=== PATIENT | male | born 1960 | race Caucasian/White ===

== ENCOUNTER 2023-05-06 11:35 | Outpatient (AMB) | payer OTHER, SELFPAY ==
--- OUTSIDE RECORDS SUMMARY | 2023-05-06 11:36 | XMS_ITS | Continuity of Care Document ---
Author Name Unknown Organization [facility] [place] Panchito lt Address [address] [place] [address]- Care Team Providers Care Child Daycare Worker Name Role Phone Christiano Chaudhary MD Primary Care Physician Encounter [facility] Date(s): 01/14/23 - 02/13/23 [facility] [place] Adult [address] [place] [address]- Allergies, Adverse Reactions, Alerts No Known Allergies Immunizations Given and Recorded Vaccine Date Status Refusal Reason influenza virus vaccine, inactivated 01/11/23 Give n influenza virus vaccine, inactivated 12/19/21 Give n influenza virus vaccine, inactivated 01/08/19 Give n influenza virus vaccine, inactivated 01/01/18 Give n influenza virus vaccine, inactivated 03/23/16 Give n influenza virus vaccine, inactivated 01/18/15 Give n influenza virus vaccine, inactivated 11/19/13 Jeanmarie rded influenza virus vaccine, inactivated 01/19/13 Give n influenza virus vaccine, inactivated 03/14/12 Give n pneumococcal 20-valent conjugate vaccine 1 06/25/22 Given SARS-CoV-2 (COVID-19) mRNA BNT-162b2 vac 03/23/21 Recorded SARS-CoV-2 (COVID-19) mRNA BNT-162b2 vac 07/19/20 Recorded SARS-CoV-2 (COVID-19) mRNA BNT-162b2 vac 06/28/20 Recorded Influenza Virus Vaccine (oldterm) 01/06/20 Recorde d tetanus/diphtheria/pertussis, acel(Tdap) 2 10/23/19 Given Tet/Diphth/Acel, Pertussis (oldterm) 04/04/10 Give n Pneumococcal Vacc (oldterm) 04/04/10 Given Tetanus Toxoid Vaccine (oldterm) 05/16/00 Given 1Result Comment: [id number] 2Result Comment: [facility]-[id number] Medications aspirin 81 mg oral delayed release tablet 81 mg, 1, tablet, By Mouth, Daily, # 90 tablet, Refills 0, Maintenance, 05/25/20 13:33:00 EST, Partial fill upon patient request if the prescription is for a schedule II opioid drug. Start Date: 05/25/20 Status: Ordered atorvastatin 40 mg oral tablet 1 tablet, By Mouth, Daily, # 90 tablet, 3 Refills, 02/06/23 9:35:00 EST, [facility]/pharmacy #[id number], 157.5,cm, 01/22/23 12:41:00 EST, Height Start Date: 02/06/23 Status: Ordered Vitamin B-12 1000 mcg oral tablet 1, tablet, By Mouth, Daily, # 90 tablet, Refills 3, Tot. 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 2colo 2014 3Colonoscopy 2018 positive polyp, repeat 2022 4Colonoscopy 2015 positive diverticulosis, non-adenomatous polyp, repeat 2019. 5colo 2013 polyp, repeat 2018 6colo 2008 polyp, rpt 3-5 years 7colo 2008 polyp, rpt 2010 Social History Social History Type Response Smoking Status Current every day sm oker; Other: 1 pack of cigarettes daily.; entered on: 11/08/16 Sex Patient Care team information Care Team Personnel Name: Christiano Chaudhary MD Position: S Physician - Primary Care Member Role: PCP Address: Address: [address] [place] [id number]- [place] Care Team Related Persons Name: BOZENA CARDENAS Address: home [address] [place] [address] Name: KENTON CARDENAS Address: home [address] [place] [address] Name: VANNA CARDENAS Address: home [address] [place] [address] Name: GRETCHEN RIVERO Address: home [address] [place] [address]
--- OUTSIDE RECORDS SUMMARY | 2023-05-06 11:36 | XMS_ITS | Continuity of Care Document ---
Author Name Unknown Organization [facility] Address [address] [place] [address] Dri ve [address] [place] [address]- Care Team Providers Care Patient Monitor Name Role Phone Neena MENSAH, Christiano Melvin Primary Care Physician Encounter [facility] [place] Date(s): 02/06/22 - 02/13/22 [facility] [address] [place] [address]- Attending Physician: Nickolas Lala MD Referring Physician: Christiano Chaudhary MD Allergies, Adverse Reactions, Alerts No Known Allergies Immunizations Given and Recorded Vaccine Date Status Refusal Reason influenza virus vaccine, inactivated 12/19/21 Give n influenza virus vaccine, inactivated 01/08/19 Give n influenza virus vaccine, inactivated 01/01/18 Give n influenza virus vaccine, inactivated 03/23/16 Give n influenza virus vaccine, inactivated 01/18/15 Give n influenza virus vaccine, inactivated 11/19/13 Jeanmarie rded influenza virus vaccine, inactivated 01/19/13 Give n influenza virus vaccine, inactivated 03/14/12 Give n SARS-CoV-2 (COVID-19) mRNA BNT-162b2 vac 03/23/21 Recorded SARS-CoV-2 (COVID-19) mRNA BNT-162b2 vac 07/19/20 Recorded SARS-CoV-2 (COVID-19) mRNA BNT-162b2 vac 06/28/20 Recorded Influenza Virus Vaccine (oldterm) 01/06/20 Recorde d tetanus/diphtheria/pertussis, acel(Tdap) 1 10/23/19 Given Tet/Diphth/Acel, Pertussis (oldterm) 04/04/10 Give n Pneumococcal Vacc (oldterm) 04/04/10 Given Tetanus Toxoid Vaccine (oldterm) 05/16/00 Given 1Result Comment: [facility]-[id number] Medications aspirin 81 mg oral delayed release tablet 81 mg, 1, tablet, By Mouth, Daily, # 90 tablet, Refills 0, Maintenance, 05/25/20 13:33:00 EST, Partial fill upon patient request if the prescription is for a schedule II opioid drug. Start Date: 05/25/20 Status: Ordered atorvastatin 40 mg oral tablet 1 tablet, By Mouth, Daily, # 90 tablet, 3 Refills, 06/01/21 10:22:00 EDT, [facility] #[id number], 157.5, cm, 06/01/21 10:12:00 EDT, Height Start Date: 06/01/21 Status: Ordered Vitamin B-12 1000 mcg oral tablet 1, tablet, By Mouth, Daily, # 90 tablet, Refills 3, Tot. Refills 3, 06/01/21 10:22:00 EDT, Route toPharmacy Electronically, [facility] #[id number], 157.5, cm, 06/01/21 10:12:00 EDT, Height Start Date: 06/01/21 Status: Ordered Problem List Condition Confirmation Course Effective Dates Status Health Status Informant Alcohol abuse Confirmed Active Chronic obstructive pulmonary disease (COPD) Confirmed Active Vitamin B12 deficiency Confirmed Active Coronary artery disease 1 Confirmed Active Diverticulosis 2 Confirmed Active Sebaceous cyst Confirmed Active Family history of colon cancer Confirmed Active Helicobacter pylori gastritis Confirmed Active Hx of colonic polyp 3, 4, 5, 6, 7 Confirmed Active Hypercholesterolemia Confirmed Active Iron deficiency anemia Confirmed Active Substance abuse Confirmed Active Tobacco abuse Confirmed Active 1CT chest 2017 performed for lung cancer screening revealed coronary artery calcifications. 2colo 2014 3Colonoscopy 2017 positive polyp, repeat 2022 4Colonoscopy 2015 positive diverticulosis, non-adenomatous polyp, repeat 2019. 5colo 2013 polyp, repeat 2018 6colo 2008 polyp, rpt 3-5 years 7colo 2008 polyp, rpt 2010 Vital Signs Most recent to oldest [Reference Range]: 1 Height 157.5 cm (02/06/22 11:36 AM) Social History Social History Type Response Smoking Status Current every day sm oker; Other: 1 pack of cigarettes daily.; entered on: 11/08/16 Sex Patient Care team information Care Team Personnel Name: Christiano Chaudhary MD Position: S Primary Care Physician Member Role: PCP Address: Address: [address] [place] [address]- Care Team Related Persons Name: BOZENA CARDENAS Address: home [address] [place], [place] Name: KENTON CARDENAS Address: [address] [place], [place] Name: VANNA CARDENAS Address: home [address] [place], [place] Name: GRETCHEN RIVERO Address: [address] [place] [address]
--- OUTSIDE RECORDS SUMMARY | 2023-05-06 11:36 | XMS_ITS | Continuity of Care Document ---
Author Name Unknown Organization [facility] [place] Panchito lt Address [address] [place] [address]- Care Team Providers Care Database Management System Specialist Name Role Phone Christiano Chaudhary MD Primary Care Physician Encounter [facility] [place] Date(s): 05/27/20 - 06/26/20 [facility] Adult [address] [place] [address]- Allergies, Adverse Reactions, Alerts Substance Reaction Severity Status NKA Active Immunizations Given and Recorded Vaccine Date Status Refusal Reason Influenza Virus Vaccine (oldterm) 01/06/20 Recorde d tetanus/diphtheria/pertussis, acel(Tdap) 1 10/23/19 Given influenza virus vaccine, inactivated 01/08/19 Give n influenza virus vaccine, inactivated 01/01/18 Give n influenza virus vaccine, inactivated 03/23/16 Give n influenza virus vaccine, inactivated 01/18/15 Give n influenza virus vaccine, inactivated 11/19/13 Jeanmarie rded influenza virus vaccine, inactivated 01/19/13 Give n influenza virus vaccine, inactivated 03/14/12 Give n Tet/Diphth/Acel, Pertussis (oldterm) 04/04/10 Give n Pneumococcal Vacc (oldterm) 04/04/10 Given Tetanus Toxoid Vaccine (oldterm) 05/16/00 Given 1Result Comment: [facility]-[id number] Medications aspirin 81 mg oral delayed release tablet 81 mg, 1, tablet, By Mouth, Daily, # 90 tablet, Refills 0, Maintenance, 05/25/20 13:33:00 EST, Partial fill upon patient request if the prescription is for a schedule II opioid drug. Start Date: 05/25/20 Status: Ordered Lipitor 40 mg oral tablet 1 tablet = 40 mg, By Mouth, Daily, # 90 tablet, 3 Refills, Maintenance, 10/23/19 14:46:00 EDT, Tablet, [facility] #[id number], REPLACES [place]ISR, 157.5, cm, 10/23/19 14:25:00 EDT, Height Start Date: 10/23/19 Status: Ordered Vitamin B12 1000 mcg oral tablet 1 tablet = 1,000 mcg, By Mouth, Daily, # 90 tablet, 3 Refills, Maintenance, 10/23/19 14:46:00 EDT, Tablet, [facility] #[id number], 157.5, cm, 10/23/19 14:25:00 EDT, Height Start Date: 10/23/19 Status: Ordered Problem List Condition Effective Dates Status Health Status Inform ant Alcohol abuse(Confirmed) Active Chronic obstructive pulmonar y disease (COPD)(Confirmed) Active Vitamin B12 deficiency(Confirmed) Active Coronary artery disease(Confirmed) 1 Active Diverticulosis(Confirmed) 2 Active Sebaceous cyst(Confirmed) Active Family history of colon cancer(Confirmed) Active Helicobacter pylori gastritis(Confirmed) Active Hx of colonic polyp(Confirme d) 3, 4, 5, 6, 7 Active Hypercholesterolemia(Confirmed) Active Iron deficiency anemia(Confirmed) Active Substance abuse(Confirmed) Active Tobacco abuse(Confirmed) Active 1CT chest 2017 performed for lung cancer screening revealed coronary artery calcifications. 2colo 2014 3Colonoscopy 2018 positive polyp, repeat 2022 4Colonoscopy 2014 positive diverticulosis, non-adenomatous polyp, repeat 2019. 5colo 2012 polyp, repeat 2017 6colo 2008 polyp, rpt 3-5 years 7colo 2007 polyp, rpt 2010 Social History Social History Type Response Smoking Status Current every day sm oker; Other: 1 pack of cigarettes daily.; entered on: 11/08/16 Sex
--- OUTSIDE RECORDS SUMMARY | 2023-05-06 11:36 | XMS_ITS | Continuity of Care Document ---
Author Name Unknown Organization [facility] Address [address] [place] [address] Dri ve [address] [place] [address]- Care Team Providers Care Health Information Managers Name Role Phone Christiano Chaudhary MD Primary Care Physician [phone] Encounter [facility] [place] Date(s): 04/24/22 - 05/24/22 [facility] [address] [place], [place] [address] Attending Physician: Admtr, [id number] Admitting Physician: Admtr, [id number] Referring Physician: Admtr, [id number] Allergies, Adverse Reactions, Alerts No Known Allergies [...] Vaccine (oldterm) 05/16/00 Given 1Result Comment: [facility]-[id number] Medications aspirin 81 mg oral delayed release tablet 81 mg, 1, tablet, By Mouth, Daily, # 90 tablet, Refills 0, Maintenance, 05/25/20 13:33:00 EST, Partial fill upon patient request if the prescription is for a schedule II opioid drug. Start Date: 05/25/20 Status: Ordered atorvastatin 40 mg oral tablet 1 tablet, By Mouth, Daily, # 90 tablet, 3 Refills, 06/01/21 10:22:00 EDT, [facility] #[id number], 157.5, cm, 06/01/21 10:12:00 EDT, Height Start Date: 06/01/21 Status: Ordered Vitamin B-12 1000 mcg oral tablet 1, tablet, By Mouth, Daily, # 90 tablet, Refills 3, Tot. Refills 3, 06/01/21 10:22:00 EDT, Route toPharmacy Electronically, [facility] #[id number], 157.5, cm, 06/01/21 10:12:00 EDT, Height Start [...] Care Physician Member Role: PCP Address: Address: [address] [place] [address]- Care Team Related Persons Name: RONALDBOZENA Address: home [address] [place] [address] Name: KENTON CARDENAS Address: home [address] [place] [address] Name: VANNA CARDENAS Address: [address] [place] [address] Name: GRETCHEN RIVERO Address: home [address] [place] [address]
--- OUTSIDE RECORDS SUMMARY | 2023-05-06 11:36 | XMS_ITS | Continuity of Care Document ---
Author Name Unknown Organization [facility] [place] Address [address] [place] [address]- Care Team Providers Care Lead Javascript Engineer Name Role Phone Christiano Chaudhary MD Primary Care Physician [phone] Encounter [facility] Date(s): 11/15/21 - 12/15/21 [facility] [place] [address] [place] [address]- Allergies, Adverse Reactions, Alerts No Known Allergies Immunizations Given and Recorded Vaccine Date Status Refusal Reason SARS-CoV-2 (COVID-19) mRNA BNT-162b2 vac 03/23/21 Recorded [...] Toxoid Vaccine (oldterm) 05/16/00 Given 1Result Comment: [facility]-[id number] Medications aspirin 81 mg oral delayed release tablet 81 mg, 1, tablet, By Mouth, Daily, # 90 tablet, Refills 0, Maintenance, 05/25/20 13:33:00 EST, Partial fill upon patient request if the prescription is for a schedule II opioid drug. Start Date: 05/25/20 Status: Ordered atorvastatin 40 mg oral tablet 1 tablet, By Mouth, Daily, # 90 tablet, 3 Refills, 06/01/21 10:22:00 EDT, [facility] #[id number], 157.5, cm, 06/01/21 10:12:00 EDT, Height Start Date: 06/01/21 Status: Ordered Golytely - oral powder for reconstitution 240 mL, By Mouth, Every 15 minutes, # 480 mL, 0 Refills, Maintenance, 11/15/21 12:56:00 EDT, REC Powder, [facility] #[id number], Partial fill upon patient request if the prescription is for a schedule II opioid drug., 240 mL By Mouth Every 15 min... Start Date: 11/15/21 Status: Ordered Vitamin B-12 1000 mcg oral tablet 1, tablet, By Mouth, Daily, # 90 tablet, Refills 3, Tot. Refills 3, 06/01/21 10:22:00 EDT, Route toPharmacy Electronically, [facility] #[id number], 157.5, cm, 06/01/21 10:12:00 EDT, Height Start [...] Active Tobacco abuse Confirmed Active 1CT chest 2016 performed for lung cancer screening revealed coronary artery calcifications. 2colo 2014 3Colonoscopy 2018 positive polyp, repeat 2022 4Colonoscopy 2014 positive diverticulosis, non-adenomatous polyp, repeat 2019. 5colo 2012 polyp, repeat 2018 6colo 2008 polyp, rpt 3-5 years 7colo 2008 polyp, rpt 2010 Social History Social History Type Response Smoking Status Current every day sm oker; Other: 1 pack of cigarettes daily.; entered on: 11/08/16 Sex Patient Care team information Personnel Name: Neena MENSAH, Christiano Melvin Address: Address: [address] [place] [address] [place] [address]- [place]
--- OUTSIDE RECORDS SUMMARY | 2023-05-06 11:36 | XMS_ITS | Continuity of Care Document ---
Author Name Unknown Organization [facility] Address [address] [place] [address] [address] [place] [address]- Care Team Providers Care Garment Presser Name Role Phone Neena MENSAH, Christiano Melvin Primary Care Physician [place] [facility] [place]/16/[place] - 04/23/[address] [place] [address]- Attending Physician: Nickolas Lala MD Referring Physician: [...] Toxoid Vaccine (oldterm) 05/16/00 Given 1Result Comment: [facility]-[id number] Medications aspirin 81 mg oral delayed release tablet 81 mg, 1, tablet, By Mouth, Daily, # 90 tablet, Refills 0, Maintenance, 05/25/20 13:33:00 EST, Partial fill upon patient request if the prescription is for a schedule II opioid drug. Start Date: 05/25/20 Status: Ordered atorvastatin 40 mg oral tablet 1 tablet, By Mouth, Daily, # 90 tablet, 3 Refills, 06/01/21 10:22:00 EDT, [facility] #[id number], 157.5, cm, 06/01/21 10:12:00 EDT, Height Start Date: 06/01/21 Status: Ordered Vitamin B-12 1000 mcg oral tablet 1, tablet, By Mouth, Daily, # 90 tablet, Refills 3, Tot. Refills 3, 06/01/21 10:22:00 EDT, Route toPharmacy Electronically, [facility] #[id number], 157.5, cm, 06/01/21 10:12:00 EDT, Height Start [...] 3Colonoscopy 2017 positive polyp, repeat 2022 4Colonoscopy 2014 positive diverticulosis, non-adenomatous polyp, repeat 2019. 5colo 2012 polyp, repeat 2018 6colo 2008 polyp, rpt 3-5 years 7colo 2008 polyp, rpt 2010 Vital Signs Most recent to oldest [Reference Range]: 1 Height 157.5 cm (04/16/22 10:26 AM) Social History Social History Type Response Smoking Status Current every day sm oker; Other: 1 pack of cigarettes daily.; entered on: 11/08/16 Sex Patient Care team information Care Team Personnel Name: Christiano Chaudhary MD Position: S Primary Care Physician Member Role: PCP Address: Address: [address] [place] [address]- [place] Care Team Related Persons Name: BOZENA CARDENAS Address: [address] [place] [address] Name: KENOTN CARDENAS Address: [address] [place] [address] Name: VANNA CARDENAS Address: [address] [place] [address] Name: GRETCHEN RIVERO Address: home [address] [place] [address]
--- OUTSIDE RECORDS SUMMARY | 2023-05-06 11:37 | XMS_ITS | Continuity of Care Document ---
Author Name Unknown Organization [facility] [place] Address [address] [place] [address] [address] [place] [address]- Care Team Providers Care Abe Teacher Name Role Phone Christiano Chaudhary MD Primary Care Physician [phone] Encounter [facility] [place] Date(s): 10/16/19 - 10/23/19 [facility] [address] [place] [address]- [facility] Attending Physician: Nickolas Lala MD Allergies, Adverse Reactions, Alerts Substance Reaction Severity Status NKA Active Immunizations Given and Recorded Vaccine Date Status Refusal Reason tetanus/diphtheria/pertussis, acel(Tdap) 1 10/23/19 Given influenza virus [...] Toxoid Vaccine (oldterm) 05/16/00 Given 1Result Comment: [facility]-[id number] Medications aspirin 81 mg oral tablet 1 tablet = 81 mg, By Mouth, Daily, # 30 tablet, 0 Refills, Maintenance, 07/08/18 14:13:53 EDT, Tablet Start Date: 07/08/18 Status: Ordered Lipitor 40 mg oral tablet 1 tablet = 40 mg, By Mouth, Daily, # 90 tablet, 3 Refills, Maintenance, 10/23/19 14:46:00 EDT, Tablet, [facility] #[id number], REPLACES ZOCOR, 157.5, cm, 10/23/19 14:25:00 EDT, Height Start Date: 10/23/19 Status: Ordered Vitamin B12 1000 mcg oral tablet 1 tablet = 1,000 mcg, By Mouth, Daily, # 90 tablet, 3 Refills, Maintenance, 10/23/19 14:46:00 EDT, Tablet, [facility] #[id number], 157.5, cm, 10/23/19 14:25:00 EDT, Height Start [...] oldest [Reference Range]: 1 Height 157.5 cm (10/16/19 12:15 PM) Weight 52.27 kg (10/16/19 12:15 PM) Body Mass Index [18.5-24.99] 21.07 (10/16/19 12:15 PM) Temperature [96.8-100.4 DegF] 97.5 DegF (10/16/19 12:15 PM) Temperature Route Temporal (10/16/19 12:15 PM) Social History Social History Type Response Smoking Status Current every day sm oker; Other: 1 pack of cigarettes daily.; entered on: 11/08/16 Sex
--- OUTSIDE RECORDS SUMMARY | 2023-05-06 11:37 | XMS_ITS | Continuity of Care Document ---
Author Name Unknown Organization [facility] P[facility] Address [address] [place] [address]- Care Team Providers Care Side Panel Hanger Name Role Phone Christiano Chaudhary MD Primary Care Physician [phone] Encounter [facility] [place] Date(s): 10/05/19 - 11/04/19 [facility] Adult [address] [place] [address]- [facility] Allergies, Adverse Reactions, Alerts Substance Reaction Severity [...] 05/16/00 Given 1Result Comment: [facility]-[id number] Medications aspirin 81 mg oral tablet 1 tablet = 81 mg, By Mouth, Daily, # 30 tablet, 0 Refills, Maintenance, 07/08/18 14:13:53 EDT, Tablet Start Date: 07/08/18 Status: Ordered Lipitor 40 mg oral tablet 1 tablet = 40 mg, By Mouth, Daily, # 90 tablet, 3 Refills, Maintenance, 10/23/19 14:46:00 EDT, Tablet, [facility] #[id number], REPLACES ZOCOR, 157.5, cm, 10/23/19 14:25:00 EDT, Height Start Date: 10/23/19 Status: Ordered Vitamin B12 1000 mcg oral tablet 1 tablet = 1,000 mcg, By Mouth, Daily, # 90 tablet, 3 Refills, Maintenance, 10/23/19 14:46:00 EDT, Tablet, [facility] #[id number], 157.5, cm, 10/23/19 14:25:00 EDT, Height Start [...] Type Response 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
--- OUTSIDE RECORDS SUMMARY | 2023-05-06 11:37 | XMS_ITS | Continuity of Care Document ---
Author Name Unknown Organization [facility] Panchito lt Address [address] [place] [address]- Care Team Providers Care Music Autographer Name Role Phone Christiano Chaudhary MD Primary Care Physician [place] [facility] [place] 07/02/22 [facility] Adult [address] [place] [address]- Encounter Diagnosis Chronic obstructive pulmonary disease (COPD)(Discharge Diagnosis) - 06/25/22 Attending Physician: Christiano Chaudhary MD Allergies, Adverse Reactions, Alerts No Known Allergies Immunizations Given and Recorded Vaccine Date Status Refusal Reason pneumococcal 20-valent conjugate vaccine 1 06/25/22 Given influenza virus vaccine, inactivated 12/19/21 Give n [...] Toxoid Vaccine (oldterm) 05/16/00 Given 1Result Comment: [id number] 2Result Comment: [facility]-[id number] Medications aspirin 81 mg oral delayed release tablet 81 mg, 1, tablet, By Mouth, Daily, # 90 tablet, Refills 0, Maintenance, 05/25/20 13:33:00 EST, Partial fill upon patient request if the prescription is for a schedule II opioid drug. Start Date: 05/25/20 Status: Ordered atorvastatin 40 mg oral tablet 1 tablet, By Mouth, Daily, # 90 tablet, 3 Refills, 06/25/22 11:30:00 EDT, [facility] #[id number], 157.5, cm, 06/25/22 11:21:00 EDT, Height Start Date: 06/25/22 Status: Ordered Vitamin B-12 1000 mcg oral tablet 1, tablet, By Mouth, Daily, # 90 tablet, Refills 3, Tot. Refills 3, 06/25/22 11:30:00 EDT, Route toPharmacy Electronically, [facility] #[id number], 157.5, cm, 06/25/22 11:21:00 EDT, Height Start Date: 06/25/22 Status: Ordered Problem List Condition Confirmation Course [...] 3-5 years 7colo 2008 polyp, rpt 2010 Diagnosis Diagnosis Type Effective Dates Health Status Clinical Service Informant Chronic obstructive pulmonary disease (COPD) Discharge Diagnosis 06/25/22 Vital Signs Most recent to oldest [Reference Range]: 1 Height 157.5 cm (06/25/22 11:21 AM) Weight 47.8 kg (06/25/22 11:21 AM) Oxygen Saturation [94-100 %] 97 % (06/25/22 11:21 AM) Pulse Rate [55-90 bpm] 113 bpm *H* (06/25/22 11:21 AM) Body Mass Index [18.5-24.99 kg/m2] 19.27 kg/m2 (06/25/22 11:21 AM) Blood Pressure [90-138/55-84 mm Hg] 98/7 0mm Hg (06/25/22 11:21 AM) Mode of Delivery (Oxygen) Room air (06/25/22 11:21 AM) Blood pressure sites Arm, left (06/25/22 11:21 AM) Weight Obtained Via Standing scale (06/25/22 11:21 AM) Social History Social History Type Response Smoking Status Current every day sm oker; Other: 1 pack of cigarettes daily.; entered on: 11/08/16 Sex Note * Esme Cid: PERFORM, SIGN, VERIFY Event Display: Patient Education/Instruction Authored Date: [id number] [facility] *BMP So Sid Fernández Clinical Summary Name GALI RAMOS Age 62 Years 1960 PCP Christiano Chaudhary MD PCP Visit Date 06/25/2022 11:21:00 Additional Instructions: Scheduled Appointments?? Future Appointments ?No Future Appointments Scheduled Follow-Up Instructions ?? With: Address: When: Christiano Chaudhary MD In 6 months Comments: Physical examination Diagnosis Deficiency of other specified B group vitamins; Chronic obstructive pulmonary disease, unspecified;Tobacco use; Family history of malignant neoplasm of digestive organs; Pure hypercholesterolemia, unspecified Medications: Please continue your medications until treatment is completed or stopped by your provider. Discuss any questions related to medications with your provider. Medications to Continue with No Changes [facility] #[id number], [address] [place] [address] [id number], [phone] Atorvastatin (atorvastatin 40 mg oral tablet) 1 tab(s) Oral Daily. Refills: 3. Next Dose: Cyanocobalamin (Vitamin B-12 1000 mcg oral tablet) 1 tab(s) Oral Daily. Refills: 3. Next Dose: These medications were not printed or sent to your pharmacy Aspirin (aspirin 81 mg oral delayed release tablet) 1 tab(s) Oral Daily. Next Dose: Allergy Info:?? NKA Medications Given This Visit Medication Dose Route pneumococcal 20-valent conjugate vaccine (pneumococcal 20-valent vacc) 0.5 mL Intramuscular Future Orders ?No future orders Vital Signs Height 157.5 cm Weight 47.8 kg BMI 19.27 kg/m2 Blood Pressure 98 mm Hg/70 mm Hg Temperature Pulse Rate 113 bpm Respiratory Rate 02 Sat Mode of Delivery 97 %/Room air You can now view a summary of your hospital visit from the comfort of your home through a free online portal called [employer]. [employer] is a website that allows you to securely view your medical information including discharge summary, medications and follow-up visits. ??You can alsosend a secure electronic message to your doctor???s office to request appointments, renew medications or just ask a question. You can enroll at [email or web address] or register during your next office visit. Disclaimer:?? The information provided is of a general nature and is intended to be used in conjunction with the recommendations and advice of your health care practitioner. ??Every effort has been made to ensure that the information provided is accurate and complete at the time it is provided to you however, as your needs change, or, as new ??information becomes available, different or additional instructions may be required. If you have questions, please consult with your primary care provider or pharmacist, as appropriate. ??This information is not intended to serve as substitution for assessment and evaluation by a qualified health care provider. If you do not have a primary care provider, you may find a [facility] provider by calling [facility] at [phone]. For information about the plan of care including goals and instructions for your diagnosis, please see the patient education orders section of this document. Patient Education Materials?? The content of this educational material or handout may have been modified, supplemented, or adapted from its original content and format to support your individualized medical care. Patient Care team information Care Team Personnel Name: Neena MENSAH, Christiano Melvin Position: S Primary Care Physician Member Role: PCP Address: Address: [address] [place] [address]- Care Team Related Persons Name: BOZENA CARDENAS Address: [address] [place] [address] Name: KENTON CARDENAS Address: [address] [place] [address] Name: VANNA CARDENAS Address: [address] [place] [id number] Name: GRETCHEN RIVERO Address: [address] [place] [address]
--- OUTSIDE RECORDS SUMMARY | 2023-05-06 11:37 | XMS_ITS | Continuity of Care Document ---
Author Name Unknown Organization [facility] Panchito lt Address [address] [place] [address]- Care Team Providers Care Avionics Systems Technician Name Role Phone Christiano Chaudhary MD Primary Care Physician [phone] [place] [facility] [place]19[place]21 - 12/26/21 [facility] Adult [address] [place] [address]- Encounter Diagnosis Family history of colon cancer(Discharge Diagnosis) - 12/19/21 Attending Physician: Christiano Chaudhary MD Allergies, Adverse [...] Toxoid Vaccine (oldterm) 05/16/00 Given 1Result Comment: [facility]-[id number] Medications aspirin 81 mg oral delayed release tablet 81 mg, 1, tablet, By Mouth, Daily, # 90 tablet, Refills 0, Maintenance, 05/25/20 13:33:00 EST, Partial fill upon patient request if the prescription is for a schedule II opioid drug. Start Date: 05/25/20 Status: Ordered atorvastatin 40 mg oral tablet 1 tablet, By Mouth, Daily, # 90 tablet, 3 Refills, 06/01/21 10:22:00 EDT, [facility] #[id number], 157.5, cm, 06/01/21 10:12:00 EDT, Height Start Date: 06/01/21 Status: Ordered Golytely - oral powder for reconstitution 240 mL, By Mouth, Every 15 minutes, # 480 mL, 0 Refills, Maintenance, 11/15/21 12:56:00 EDT, REC Powder, [facility] #[id number], Partial fill upon patient request if the prescription is for a schedule II opioid drug., 240 mL By Mouth Every 15 min... Start Date: 11/15/21 Status: Ordered Vitamin B-12 1000 mcg oral tablet 1, tablet, By Mouth, Daily, # 90 tablet, Refills 3, Tot. Refills 3, 06/01/21 10:22:00 EDT, Route toPharmacy Electronically, [facility] #[id number], 157.5, cm, 06/01/21 10:12:00 EDT, Height Start [...] rpt 3-5 years 7colo 2008 polyp, rpt 2011 Diagnosis Diagnosis Type Effective Dates Health Status Cl inical Service Informant Family history of colon cancer Discharge Diagnosis 12/19/21 Vital Signs Most recent to oldest [Reference Range]: 1 Height 157.5 cm (12/19/21 11:12 AM) Weight 47.7 kg (12/19/21 11:12 AM) Oxygen Saturation [94-100 %] 98 % (12/19/21 11:12 AM) Pulse Rate [55-90 bpm] 97 bpm *H* (12/19/21 11:12 AM) Body Mass Index [18.5-24.99 kg/m2] 19.23 kg/m2 (12/19/21 11:12 AM) Blood Pressure [90-138/55-84 mm Hg] 110/ 72mm Hg (12/19/21 11:12 AM) Mode of Delivery (Oxygen) Room air (12/19/21 11:12 AM) Blood pressure sites Arm, left (12/19/21 11:12 AM) Weight Obtained Via Standing scale (12/19/21 11:12 AM) Social History Social History Type Response Smoking Status Current every day sm oker; Other: 1 pack of cigarettes daily.; entered on: 11/08/16 Sex Patient Care team information Personnel Name: Christiano Chaudhary MD Address: Address: [address] [place] [address]-
--- OUTSIDE RECORDS SUMMARY | 2023-05-06 11:37 | XMS_ITS | Continuity of Care Document ---
Author Name Unknown Organization [facility] Address [address] [place] [address]- Care Team Providers Care Coding Tech Name Role Phone Christiano Chaudhary MD Primary Care Physician Encounter [facility] Date(s): 01/29/23 - 02/28/23 [facility] [address] [place] [id number] Allergies, Adverse Reactions, Alerts No Known Allergies [...] Toxoid Vaccine (oldterm) 05/16/00 Given 1Result Comment: [id number] 2Result Comment: [facility]-[id number] Medications aspirin 81 mg oral delayed release tablet 81 mg, 1, tablet, By Mouth, Daily, # 90 tablet, Refills 0, Maintenance, 05/25/20 13:33:00 EST, Partial fill upon patient request if the prescription is for a schedule II opioid drug. Start Date: 05/25/20 Status: Ordered atorvastatin 40 mg oral tablet 1 tablet, By Mouth, Daily, # 90 tablet, 3 Refills, 02/06/23 9:35:00 EST, [facility]/pharmacy #[id number], 157.5,cm, 01/22/23 12:41:00 EST, Height Start Date: 02/06/23 Status: Ordered Vitamin B-12 1000 mcg oral tablet 1, tablet, By Mouth, Daily, # 90 tablet, Refills 3, Tot. Refills 3, 02/06/23 9:35:00 EST, Route to Pharmacy Electronically, [facility]/pharmacy #[id number], 157.5, cm, 01/22/23 12:41:00 EST, Height [...] 3-5 years 7colo 2008 polyp, rpt 2011 Social History Social History Type Response Smoking Status Current every day sm oker; Other: 1 pack of cigarettes daily.; entered on: 11/08/16 Sex Patient Care team information Care Team Personnel Name: Christiano Chaudhary MD Position: S Physician - Primary Care Member Role: PCP Address: Address: [address] [place] [address]- Care Team Related Persons Name: BOZENA CARDENAS Address: [address] [place] [address] Name: KENTON CARDENAS Address: [address] [place] [address] Name: VANNA CARDENAS Address: [address] [place] [address] Name: GRETCHEN RIVERO Address: home [address] [place] [address]
--- OUTSIDE RECORDS SUMMARY | 2023-05-06 11:37 | XMS_ITS | Continuity of Care Document ---
Author Name Unknown Organization [facility] Panchito lt Address [address] [place] [address]- Care Team Providers Care Firer Retort Name Role Phone Christiano Chaudhary MD Primary Care Physician [phone] [place] [facility] [place]19 [facility] Adult [address] [place] [address]- [facility] Attending Physician: Christiano Chaudhary MD Allergies, Adverse Reactions, Alerts Substance Reaction Severity Status NKA Active Immunizations Given and Recorded Vaccine Date Status Refusal Reason influenza virus vaccine, inactivated 01/08/19 Give n [...] Given Tetanus Toxoid Vaccine (oldterm) 05/16/00 Given Medications aspirin 81 mg oral tablet 1 tablet = 81 mg, By Mouth, Daily, # 30 tablet, 0 Refills, Maintenance, 07/08/18 14:13:53 EDT, Tablet Start Date: 07/08/18 Status: Ordered Colace Capsule 2, tablet, By Mouth, Daily, Maintenance, 01/21/14 14:18:16 Start Date: 01/21/14 Status: Ordered for vit b12 injection for vit b12 injection, See Instructions, # 6 each, Refills 0, Tot. Refills 0, Maintenance, vanish point syringe 25g x 5/8 3ml, 06/28/17 8:00:36 EDT, Compound Start Date: 06/28/17 Status: Ordered Insulin Syringe, BD Ultra-Fine 1 cc 30 G x 12.7 mm (1/2in) See Instructions, # 10 each, Refills 11, Tot. Refills 11, Maintenance, as directed, 11/22/17 9:36:00 EDT, Compound Start Date: 11/22/17 Status: Ordered Lipitor 40 mg oral tablet 1 tablet = 40 mg, By Mouth, Daily, # 90 tablet, 1 Refills, Maintenance, 04/06/19 10:56:00 EST, Tablet, [facility] #[id number], REPLACES ZOCOR, 157.5, cm, 04/03/19 11:11:00 EST, Height Start Date: 04/06/19 Status: Ordered NuLYTELY with Flavor Packs oral powder for reconstitution 240 mL, By Mouth, Every 15 minutes, # 4,000 mL, 0 Refills, Maintenance, 11/21/16 16:23:40, 240 mL By Mouth Every 15 minutes Start Date: 11/21/16 Status: Ordered Vitamin B12 1000 mcg oral tablet 1 tablet = 1,000 mcg, By Mouth, Daily, # 90 tablet, 3 Refills, Maintenance, 02/18/19 14:09:08 EST, Tablet, 157.5, cm, 01/07/19 10:40:43 EDT, Height Start Date: 02/18/19 Status: Ordered Problem List Condition Effective Dates [...]
--- OUTSIDE RECORDS SUMMARY | 2023-05-06 11:37 | XMS_ITS | Continuity of Care Document ---
Author Name Unknown Organization [facility] Address [address] [place] [address] [address] [place] [address]- Care Team Providers Care Label Folder Name Role Phone Christiano Chaudhary MD Primary Care Physician [phone] En[place] [facility] [place] Date(s): 04/24/22 - 05/01/22 [facility] [address] [place] [address]- Attending Physician: Nickolas Lala MD Referring Physician: [...] Toxoid Vaccine (oldterm) 05/16/00 Given 1Result Comment: [facility]-[id number] Medications aspirin 81 mg oral delayed release tablet 81 mg, 1, tablet, By Mouth, Daily, # 90 tablet, Refills 0, Maintenance, 05/25/20 13:33:00 EST, Partial fill upon patient request if the prescription is for a schedule II opioid drug. Start Date: 05/25/20 Status: Ordered atorvastatin 40 mg oral tablet 1 tablet, By Mouth, Daily, # 90 tablet, 3 Refills, 06/01/21 10:22:00 EDT, [facility] #[id number], 157.5, cm, 06/01/21 10:12:00 EDT, Height Start Date: 06/01/21 Status: Ordered Vitamin B-12 1000 mcg oral tablet 1, tablet, By Mouth, Daily, # 90 tablet, Refills 3, Tot. Refills 3, 06/01/21 10:22:00 EDT, Route toPharmacy Electronically, [facility] #[id number], 157.5, cm, 06/01/21 10:12:00 EDT, Height Start [...] Care Physician Member Role: PCP Address: Address: [address] [place] [address]- Care Team Related Persons Name: BOZENA CARDENAS Address: home [address] [place] [address] Name: KENTON CARDENAS Address: [address] [place] [address] Name: VANNA CARDENAS Address: [address] [place] [address] Name: GRETCHEN RIVERO Address: [address] [place] [address]
--- OUTSIDE RECORDS SUMMARY | 2023-05-06 11:37 | XMS_ITS | Continuity of Care Document ---
Author Name Unknown Organization [facility] Address [address] [address]- Care Team Providers Care Flying Instructor Name Role Phone Neena MENSAH, Christiano Melvin Primary Care Physician Encounter [facility] Date(s): 01/25/22 - 02/24/22 [facility] [address] [facility] [address] [place] [address] Attending Physician: Teodoro Arndt Admitting Physician: AdmtrTeodoro Referring Physician: Admtr, Ar8 Allergies, Adverse Reactions, [...] Toxoid Vaccine (oldterm) 05/16/00 Given 1Result Comment: [facility]-[id number] Medications aspirin 81 mg oral delayed release tablet 81 mg, 1, tablet, By Mouth, Daily, # 90 tablet, Refills 0, Maintenance, 05/25/20 13:33:00 EST, Partial fill upon patient request if the prescription is for a schedule II opioid drug. Start Date: 05/25/20 Status: Ordered atorvastatin 40 mg oral tablet 1 tablet, By Mouth, Daily, # 90 tablet, 3 Refills, 06/01/21 10:22:00 EDT, [facility] #[id number], 157.5, cm, 06/01/21 10:12:00 EDT, Height Start Date: 06/01/21 Status: Ordered Vitamin B-12 1000 mcg oral tablet 1, tablet, By Mouth, Daily, # 90 tablet, Refills 3, Tot. Refills 3, 06/01/21 10:22:00 EDT, Route toPharmacy Electronically, [facility] #[id number], 157.5, cm, 06/01/21 10:12:00 EDT, Height Start [...] Care team information Care Team Personnel Name: Chrisitano Chaudhary MD Position: S Primary Care Physician Member Role: PCP Address: Address: [address] [place] [address]- Care Team Related Persons Name: BOZENA CARDENAS Address: [address] [place] [address] Name: KENTON CARDENAS Address: [address] [place] [address] Name: VANNA CARDENAS Address: [address] [place] [address] Name: GRETCHEN RIVERO Address: [address] [place] [address]
--- OUTSIDE RECORDS SUMMARY | 2023-05-06 11:37 | XMS_ITS | Continuity of Care Document ---
Author Name Unknown Organization [facility] Panchito lt Address [address] [place] [address]- Care Team Providers Care Results Technician Name Role Phone Christiano Chaudhary MD Primary Care Physician Encounter [facility] [place] Date(s): 04/03/19 - 08/01/19 [facility] Adult [address] [place] [address]- [facility] Attending Physician: Christiano Chaudhary MD Allergies, Adverse [...] 1 Refills, Maintenance, 04/06/19 10:56:00 EST, Tablet, [facility] #[id number], REPLACES [facility], 157.5, cm, 04/03/19 11:11:00 EST, [...]
--- OUTSIDE RECORDS SUMMARY | 2023-05-06 11:37 | XMS_ITS | Continuity of Care Document ---
Author Name Unknown Organization [facility] Panchito lt Address [address] [place] [address]- Care Team Providers Care Box Truck Washer Name Role Phone Christiano Chaudhary MD Primary Care Physician Encounter [facility] [place] Date(s): 06/01/21 - 06/08/21 [facility] Adult [address] [place] [address]- Encounter Diagnosis Chronic obstructive pulmonary disease (COPD)(Discharge Diagnosis) - 06/01/21 Tobacco abuse(Discharge Diagnosis) - 06/01/21 Attending Physician: Christiano Chaudhary MD Allergies, Adverse [...] Vaccine (oldterm) 05/16/00 Given 1Result Comment: [facility]-[id number] Medications aspirin 81 mg oral delayed release tablet 81 mg, 1, tablet, By Mouth, Daily, # 90 tablet, Refills 0, Maintenance, 05/25/20 13:33:00 EST, Partial fill upon patient request if the prescription is for a schedule II opioid drug. Start Date: 05/25/20 Status: Ordered atorvastatin 40 mg oral tablet 1 tablet, By Mouth, Daily, # 90 tablet, 3 Refills, 06/01/21 10:22:00 EDT, [facility] #[id number], 157.5, cm, 06/01/21 10:12:00 EDT, Height Start Date: 06/01/21 Status: Ordered Vitamin B-12 1000 mcg oral tablet 1, tablet, By Mouth, Daily, # 90 tablet, Refills 3, Tot. Refills 3, 06/01/21 10:22:00 EDT, Route toPharmacy Electronically, [facility] #[id number], 157.5, cm, 06/01/21 10:12:00 EDT, Height Start Date: 06/01/21 Status: Ordered Problem List Condition Effective Dates [...] 3-5 years 7colo 2007 polyp, rpt 2010 Diagnosis Diagnosis Type Effective Dates Health Status Clinical Service Informant Chronic obstructive pulmonary disease (COPD) Discharge Diagnosis 06/01/21 Tobacco abuse Discharge Diagnosis 06/01/21 Vital Signs Most recent to oldest [Reference Range]: 1 Height 157.5 cm (06/01/21 10:12 AM) Weight 50.7 kg (06/01/21 10:12 AM) Oxygen Saturation [94-100 %] 98 % (06/01/21 10:12 AM) Pulse Rate [55-90 bpm] 100 bpm *H* (06/01/21 10:12 AM) Body Mass Index [18.5-24.99] 20.44 (06/01/21 10:12 AM) Blood Pressure [90-138/55-84 mm Hg] 116/ 70mm Hg (06/01/21 10:12 AM) Mode of Delivery (Oxygen) Room air (06/01/21 10:12 AM) Blood pressure sites Arm, left (06/01/21 10:12 AM) Weight Obtained Via Standing scale (06/01/21 10:12 AM) Social History Social History Type Response 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
--- OUTSIDE RECORDS SUMMARY | 2023-05-06 11:37 | XMS_ITS | Continuity of Care Document ---
Author Name Unknown Organization [facility] Address [address] [place] [address]- Care Team Providers Care Wind Farm Support Specialist Name Role Phone Christiano Chaudhary MD Primary Care Physician [place] [facility] [place] - 09/19/[address] [address]- [facility] Attending Physician: Christiano Chaudhary MD Admitting Physician: Christiano Chaudhary MD Referring Physician: Christiano Chaudhary MD Allergies, [...] 1 Refills, Maintenance, 04/06/19 10:56:00 EST, Tablet, [facility] #[id number], REPLACES [facility]OC[facility], 157.5, cm, 04/03/19 11:11:00 EST, [...]
--- OUTSIDE RECORDS SUMMARY | 2023-05-06 11:37 | XMS_ITS | Continuity of Care Document ---
Author Name Unknown Organization [facility] ter Address [address] [place] [id number]- Care Team Providers Care Directory Operator Name Role Phone Christiano Chaudhary MD Primary Care Physician Encounter [facility] Date(s): 01/22/23 - 01/22/[address] [address] Discharge Disposition: A-D/C Home Attending Physician: Marjan Pepper MD Admitting Physician: Marjan Pepper MD Referring Physician: Marjan Pepper MD Allergies, Adverse Reactions, Alerts No Known [...] Give n influenza virus vaccine, inactivated 11/19/13 Ejanmarie rded influenza virus vaccine, inactivated 01/19/13 Give [...] Toxoid Vaccine (oldterm) 05/16/00 Given 1Result Comment: [id number] 2Result Comment: [facility]-[id number] Medications aspirin 81 mg oral delayed release tablet 81 mg, 1, tablet, By Mouth, Daily, # 90 tablet, Refills 0, Maintenance, 05/25/20 13:33:00 EST, Partial fill upon patient request if the prescription is for a schedule II opioid drug. Start Date: 05/25/20 Status: Ordered atorvastatin 40 mg oral tablet 1 tablet, By Mouth, Daily, # 90 tablet, 3 Refills, 06/25/22 11:30:00 EDT, [facility] #[id number], 157.5, cm, 06/25/22 11:21:00 EDT, Height Start Date: 06/25/22 Status: Ordered Vitamin B-12 1000 mcg oral tablet 1, tablet, By Mouth, Daily, # 90 tablet, Refills 3, Tot. Refills 3, 06/25/22 11:30:00 EDT, Route toPharmacy Electronically, [facility] #[id number], 157.5, cm, 06/25/22 11:21:00 EDT, Height Start [...] 3-5 years 7colo 2008 polyp, rpt 2011 Procedures Procedure Date Related Diagnosis Body Site Status Colonoscopy 01/22/23 Completed Vital Signs Most recent to oldest [Reference Range]: 1 2 3 Height 157.5 cm (01/22/23 12:41 PM) Weight 52.2 kg (01/22/23 12:41 PM) Oxygen Saturation [94-100 %] 100 % (01/22/23 2:30 PM) 100 % (01/22/23 2:25 PM) 100 % (01/22/23 2:18 PM) Pulse Rate [55-90 bpm] 80 bpm (01/22/23 12:41 PM) Body Mass Index [18.5-24.99 kg/m2] 21.04 kg/m2 (01/22/23 12:41 PM) Blood Pressure [90-138/55-84 mm Hg] 112/71mm Hg (01/22/23 2:30 PM) 108/72mm Hg (01/22/23 2:25 PM) 97/66mm Hg (01/22/23 2:18 PM) Respiratory Rate [16-30 br/min] 20 br/min (01/22/23 2:30 PM) 14 br/min *L* (01/22/23 2:25 PM) 13 br/min *L* (01/22/23 2:18 PM) Temperature [96.8-100.4 DegF] 98.6 DegF (01/22/23 12:41 PM) Liters per Minute 3 L/min (01/22/23 2:18 PM) Mode of Delivery (Oxygen) Room air (01/22/23 2:30 PM) Room air (01/22/23 2:25 PM) Simple face mask (01/22/23 2:18 PM) Blood pressure sites Arm, left (01/22/23 2:30 PM) Arm, left (01/22/23 2:25 PM) Arm, left (01/22/23 2:18 PM) Temperature Route Temporal (01/22/23 12:41 PM) Weight Obtained Via Patient/family state d (01/22/23 12:41 PM) Social History Social History Type Response Smoking Status Current every day sm oker; Other: 1 pack of cigarettes daily.; entered on: 11/08/16 Sex Note * Gloria Lynne RN: PERFORM Event Display: Discharge/Transfer Note Hospital Authored Date: [id number] Nursing Discharge Note Entered On: 01/22/2023 14:15 EST Performed On: 01/22/2023 14:15 EST by Gloria Lynne RN Nursing Discharge Note 2 Discharge Time : 01/22/2023 14:56 EST Gloria Lynne RN - 01/22/2023 14:56 EST Discharge Level of Care at Discharge : Home/Alf/Foster Care Patient Left Unit Via : Wheelchair Patient Accompanied Off Unit with : Responsible adult DC Instructions Provided & Signed by Pt : Yes Patient Understands D/C Instructions : Yes Patient Instructions Discharge Signed : Yes Did Pt have Specialty Bed or Wound Vac : No Gloria Lynne RN - 01/22/2023 14:15 EST * Gloria Lynne RN: PERFORM Event Display: Patient Education/Instruction Authored Date: [id number] Surgery Adult Discharge Instructions [place] [id number] Name: GALI RAMOS : 1960?? Visit: 01/22/2023 12:18?? Current Date: 01/22/2023 14:16 ?? Account: [id number]?? Surgery Discharge Instructions We would like to thank you for allowing us to assist you with your healthcare needs. The following includes patient education materials and information regarding your injury/illness. Our entire staffstrives to provide an excellent experience for our patients and their families. PLEASE ENSURE YOU FOLLOW-UP PER THE INSTRUCTIONS BELOW! ?? YOUR OPINION IS IMPORTANT TO US! Please complete the survey you may receive by mail or email. Your feedback will be used to make improvements to the healthcare experiences of our patients and their families. Surveys are administered by [employer] ?? If further treatment with your primary care physician or another doctor is recommended, it is important for you to keep the appointment. Call your primary care physician or return to the Emergency Department immediately if your condition worsens, fails to improve, or new symptoms develop. If you need to find a doctor, you can call [facility] [employer] for a referral at [phone] or toll free at [phone] or log in to [email or web address].. ?? [facility], in keeping with [facility] guidance, no longer requires face masks for staff, patientsor visitors in most situations. Similiar to time spent indoors at other locations, there is the chance that you were exposed to repiratory viruses during your time with us (such as flu or COVID-19). If you develop symptoms concerning for a viral respiratory infection, please seek testing (and treatment if indicated) from your medical provider or home test kit. ?? You can view and manage your care through the patient portal or by using a health care zeinab of your choosing. [employer] is a website that allows you to securely view your medical information including your hospital discharge summary, office visit summaries, medications and follow-up visits. You can also request appointments, renew medications, and request access to your medical information using a health care zeinab of your choosing, or just ask a question. You are entitled to know the individuals who participated in your treatment. This information is available within your medical record and will be provided upon your request. You can enroll at [email or web address] or register d uring your next office visit. You have been discharged from [facility], Patient Care Unit: ENDO??. If you have any questions regarding these instructions after you leave, please call us and we will be happy to assist you. [facility] Your Care Team Attending Physician Marjan Pepper MD?? Discharging Providers Marjan Pepper MD Reason for Admission hx of polyps Primary Care Provider Christiano Chaudhary MD? Advance Directive Health Care Proxy on File Yes - Health Care Proxy What to do next Instructions From Your Doctor ?? Orders?? Daystay Protocol, ??01/22/23 12:54:00 EST?? You Need to Schedule the Following Appointments Follow Up with??Follow up with primary care physician as needed Follow Up with??Christiano Chaudhary When:??In 0 days Discharge Medications RAMOS GALI :1960 Visit Date:01/22/2023 Medications: Please continue your medications until treatment is completed or stopped by your provider. You may resume your daily prescription medications. Discuss any questions related to medications with your provider. What How Much When Instructions Next Dose Unchanged Aspirin (aspirin 81 mg oral delayed release tablet) 1 tab(s) Oral Daily Unchanged Atorvastatin (atorvastatin 40 mg oral tablet) 1 tab(s) Oral Daily Unchanged Cyanocobalamin (Vitamin B-12 1000 mcg oral tablet) 1 tab(s) Oral Daily Allergies (NKA means No Known Allergies) NKA Education Materials Below is the list of Educational Leaflet Providered with your Discharge Instructions. Surgery Medical Daystay Surgical Overnight Discharge Instructions?? Hemorrhoids Discharge Instructions?? Diverticulosis Discharge Instructions?? Colon Polypectomy Discharge Instructions?? Valuables and Belongings I fully understand and agree that [facility] accepts no responsibility for all my personal property including clothing, toilet articles, radios, jewelry, dentures, hearing aids, rings, money, or any other property that is in my possession or is brought to me after admission. I understand certain valuables may be placed in a hospital safe for a short period of time. I understand that the hospital is not liable for loss or damage due to accident, fire, or other natural occurrence while said property is in the safe. I accept full responsibility for any personal property that I keep with me, and will not hold the hospital responsible in case of loss or disappearance. I acknowledge that i have been encouraged to send valuables and belongings home. ?? Review of Valuable and Belonging List: With patient, With family Date for Pt to Sign Valuables/Belongings: 01/22/23 12:41:00 ?? Valuables & Belongings ?? Clothes Electronic devices Jewelry Monetary Items Personal devices Miscellaneous Medications (Valuables) Valuables at Bedside Jacket, Pants, Shirt, Shoes, Undergarments ? Wallet Glasses ? Valuables Sent Home ? Valuables Sent to Security ? Other Discharge Information ? Case Management Discharge Plan?? Discharge Plan?? Discharge Level of Care at Discharge: Home/Alf/Foster Care ?? Pulmonary Rehab Status?? Pulmonary Rehab Discharge Status?? Respiratory Rate: 16 br/min ? Common Emergency Awareness Tips IS IT A STROKE? Act FAST and Check for these signs: FACE Does the face look uneven? ARM Does one arm drift down? SPEECH Does their speech sound strange? TIME Call at any sign of stroke ?? Heart Attack Signs Chest discomfort: Most heart attacks involve discomfort in the center of the chest and lasts more than a few minutes, or goes away and comes back. It can feel like uncomfortable pressure, squeezing, fullness or pain. Discomfort in upper body: Symptoms can include pain or discomfort in one or both arms, back, neck, jaw or stomach. Shortness of breath: With or without discomfort. Other signs: Breaking out in a cold sweat, nausea, or lightheaded. Remember, MINUTES DO MATTER. If you experience any of these heart attack warning signs, call to get immediate medical attention! ?? Smoking can increase your chances of developing chronic health problems and can cause harmful effects to other family members in your house. If you smoke, you are strongly encouraged to quit. Please call [facility] [employer] Link at [phone] or [phone]) or log in to [email or web address] for referrals to smoking cessation programs. ?? The National Suicide Prevention Hotline is available 08/10 if you or someone you know needs to find a reason to keep living. By calling 9-214-025-wuaki.tv (9688) you'll be connected to a skilled, trained counselor at a crisis center in your area. SURGERY DISCHARGE INSTRUCTIONS SIGNATURE PAGE RACHEL GALI Location:[facility] Registration Date and Time:01/22/2023 12:18 EST Primary Care Physician: Christiano Chaudhary MD, Attending Physician: Evgeny MENSAH, Marjan, I GALI RAMOS, have received the above patient education materials/instructions and have verbalized understanding. If ambulance or transport services are being used I further acknowledge being given a choice of service. ?? If you need to contact me, please call me at this number: . Patient/Certified Registered Locksmith Name: Patient/Certified Registered Locksmith Signature: Relationship to Patient: Witness Name/Signature: Date: * Gloria Lynne RN: PERFORM, SIGN, VERIFY Event Display: Patient Education Handout Authored Date: [id number] * Gloria Lynne RN: PERFORM Event Display: Patient Education Leaflets Authored Date: [id number] Surgery Medical Daystay Surgical Overnight Discharge Instructions ?? 295 Medical Daystay/Surgical Overnight Discharge Instructions ? Since your coordination and judgment may be altered by medication and/or anesthesia, a responsible adult must drive you home from the hospital. ? If you have received medication for pain or sedation while under our care, you should not drive, operate machinery, drink alcohol, or sign any legal documents for 24 hours.?? You should have someone with you at home tonight. ? Remain at home the day of discharge.?? You may be up and about unless otherwise instructed by your physician. ? You may resume your daily prescription medication schedule.?? Any depressant medication should be avoided for 24 hours unless otherwise instructed by your surgeon or anesthesiologist. ? Call your physician for a follow-up appointment.? If you experience unusual or severe pain not relied by your pain medication, excessive bleedingor drainage, persistent nausea and vomiting, excessive swelling or redness, foul odor from incisionsite or fever over 100.6F, you need to call your physician. ? A follow-up phone call by a nurse will be made the day after your procedure.?? If you have stayed with us over night, you will not be receiving a follow-up phone call. ? Nausea and vomiting are a common side effect of prescription pain medication.?? We recommend that pills are not taken on an empty stomach.?? While taking any prescription pain medication you should not drive or drink alcohol. ? * Gloria Lynne RN: PERFORM Event Display: Patient Education Leaflets Authored Date: [id number] Hemorrhoids Discharge Instructions ?? 672 ??Hemorrhoids Discharge Instructions ??You must carefully read the Consumer Information Use and Disclaimer below in order to understand and correctly use this information?? About this topic Hemorrhoids are swollen veins in the rectum. Your rectum is where stool leaves your body. You may be able to see or feel your hemorrhoids outside of your body, but some hemorrhoids are inside of yourrectum and cannot be seen. Hemorrhoids can cause itching, pain, and bleeding. Being constipated or having hard stools can make your hemorrhoids worse.?? What care is needed at home? Ask your doctor what you need to do when you go home. Make sure??you ask questions if you do not understand what the doctor says. This??way you will know what you need to do. ??? Soak your bottomin a few inches of warm water for 10 to 15 minutes??at a time. You can do this 2 to 3 times each day. Do not add soap,??bubble bath, or anything to the water. ??? Use kksj-saj-svkyjse medicines to treat your hemorrhoids. These??include ointments and creams to help with pain and swelling. You can??also use a product like witch nereida to help dry out the skin in the area. ??? To help with constipation: ??? Use stool softeners when needed. ??? Eat high-fiber foods. These include whole grains, fruits, and??vegetables. ??? Drink plenty of water and other fluids each day. This helps to??keep your stools soft. ??? Set a regular schedule to try and have a bowel movement. Do??not ignore the urge to go to the bathroom. Don???t hold it in. ??? Give yourself plenty of time to have a bowel movement, but do not linger on the toilet either, by sitting and reading for a long time. ??? Do mild exercise each day like taking a walk. ??? Avoid heavy lifting or straining while the hemorrhoid is healing. ?? What follow-up care is needed? If your problem does not get better, other care may be needed. Your doctor may ask you to make visits to the office to check on your progress. Be sure to keep these visits.?? What drugs may be needed? The doctor may order drugs to: ??? Help with pain and swelling ??? Ease itching ??? Soften stools ?? Will physical activity be limited? Working out can help with digestion. It might help keep you from having hard stools. Ask your doctor about the best kind of exercise for you. ?? What problems could happen? You may have very bad bleeding. ??? Sometimes, treatments do not work. Some hemorrhoids are very??large. You might need surgery for either of these. ?? When do I need to call the doctor? You have a lot of bleeding from your rectum. ??? Your bowel movement looks like tar. ??? You are not able to pass stool because of pain from your??hemorrhoids. ??? Your pain gets worse and is nothelped by zfiu-auh-xjlzhhv??medicines, warm water, or your home care. ??? You have a fever of 100.4??F (38??C) or higher. ?? Teach Back: Helping You Understand The Teach Back Method helps you understand the information we are giving you. After you talk with the staff, tell them in your own words what you learned. This helps to make sure the staff has described each thing clearly. It also helps to explain things that may have been confusing. Before going home, make sure you can do these: ??? I can tell you about my condition. ??? I can tell you what may help ease my pain. ??? I can tell you what I will do if I have blood in my rectum. Where can I learn more?[employer]https://familydoctor.or g/condition/hemorrhoids/National Digestive Disease Information Clearinghousehttps://www.niddk.nih.go v/health-information/digestive-diseases/hemorrhoids/definition-factsLast Reviewed Pbon2945-52-20Ofjulnig Information Use and Disclaimer:This generalized information is a limited summary of diagnosis,treatment, and/or medication information. It is not meant to be comprehensive and should be used asa tool to help the user understand and/or assess potential diagnostic and treatment options. It does NOT include all information about conditions, treatments, medications, side effects, or risks thatmay apply to a specific patient. It is not intended to be medical advice or a substitute for the medical advice, diagnosis, or treatment of a health care provider based on the health care provider's examination and assessment of a patient???s specific and unique circumstances. Patients must speak with a health care provider for complete information about their health, medical questions, and treatment options, including any risks or benefits regarding use of medications. This information does not endorse any treatments or medications as safe, effective, or approved for treating a specific patient. [employer] and its affiliates disclaim any warranty or liability relating to this information or the use thereof. The use of this information is governed by the Terms of Use, available at??htt ps://www.[employer].com/en/know/ouyookac-xxywqbkfjmgeo-ssbziEbsc Updated 05/10/21? * Gloria Lynne RN: PERFORM Event Display: Patient Education Leaflets Authored Date: [id number] Diverticulosis Discharge Instructions ?? 680 Diverticulosis Discharge Instructions ??You must carefully read the Consumer Information Use and Disclaimer below in order to understand and correctly use this information?About this topicDiverticulosis is a problem of the large bowel or colon. The wall of the bowel becomes weak and pushes outward. They form balloon-like pouches called diverticula or tics. When you have hard stool, you strain to have a bowel movement. This raises the pressure in the bowel and causes pouches or bulges to form. Most often, they do not cause a problem. If they become infected, you have diverticulitis. If you have both bleeding and infection, it is diverticular disease.??What care is needed at home? Ask your doctor what you need to do when you go home. Make sure??you ask questions if you do not understand what the doctor says. ??? Eat more whole grains, vegetables, and fruits. ??? Do not wait to have a bowel movement. Go as soon as you have the??urge. ??? Drink 8 to 10 glasses of water each day. Talk to your doctor if you are??drinking less fluids due to a health problem. ??? Be active. Walk,garden, or do something active for 30 minutes or more on most days of the week. ??What follow-up care is needed?Your doctor may ask you to make visits to the office to check on your progress. Be sure to keep these visits.??What drugs may be needed?Most often with diverticulosis you will not need to take any drugs.??Will physical activity be limited?When you are in pain, you may need to rest in bed. To ease the pain, use a heat compress on your belly. This should last only for a few days.??What changes to diet are needed?Talk to your doctor about any changes you need to make to your diet.? You do not need to avoid seeds, nuts, corn, or other similar foods. ??? You will need to eat food rich in fiber and drink more water. o Eat 5 or more servings of fresh fruits and vegetables every day. o Eat 6 or more servings of whole-wheat grain breads and??cereals. ??? Try toget 25 to 30 grams of fiber every day. Read the labels to??learn how much fiber is in foods. ??? Donot drink coffee, tea, or beer, wine, and mixed drinks (alcohol). ??What problems could happen?You may develop diverticulitis, which may cause:? Pockets or pouches in your bowel may be infected or filled with pus. ??? Hole or tear in your bowel ??? Part of your bowel to become narrow ??? You to need surgery ??What can be done to prevent this health problem?The best way to keep from having diverticulosis is to keep your bowel movements soft and normal. To keep more pouches from forming:? Talk with your doctor about adding an emgg-aiy-uichajo (OTC) fiber??product to keep your stools soft. ??? Limithow much pain drugs you take. Overuse of some pain drugs can??cause hard stools; talk with your doctor. ??? When do I need to call the doctor? Signs of infection. These include a fever of 100.4??F (38??C) or higher,??chills. ??? Mild pain or cramping in the lower part of the belly ??? A feelingof bloating in the belly ??? Belly pain that gets worse ??? Blood in your stool ??? Upset stomach or throwing up ??? Stools get too loose or too hard ??? Long-term hard stools ??Teach Back: Helping You UnderstandThe Teach Back Method helps you understand the information we are giving you. After you talk with the staff, tell them in your own words what you learned. This helps to make sure the staff has described each thing clearly. It also helps to explain things that mayhave been confusing. Before going home, make sure you are able to do these:? I can tell you abo ut my condition. ??? I can tell you what changes I need to make with my diet or drugs. ??? I can tell you what I will do if I have pain or cramping in my lower belly??or I have more belly pain. ??Where can I learn more???FamilyDoctor.orghttp://familydoctor.org/familydoctor/en/diseases-conditio ns/div erticular-disease.htmlNHShttps://www.nhs.uk/conditions/cvoabizklzzz-tnjiwxa-eph- diverticulitis/LastReviewed Brfg0387-77-39Lbxcdvoq Information Use and Disclaimer:This generalized information is a limited summary of diagnosis, treatment, and/or medication information. It is not meant to be comprehensive and should be used as a tool to help the user understand and/or assess potential diagnostic and treatment options. It does NOT include all information about conditions, treatments, medications, side effects, or risks that may apply to a specific patient. It is not intended to be medical adviceor a substitute for the medical advice, diagnosis, or treatment of a health care provider based on the health care provider's examination and assessment of a patient???s specific and unique circumstances. Patients must speak with a health care provider for complete information about their health, medical questions, and treatment options, including any risks or benefits regarding use of medications. This information does not endorse any treatments or medications as safe, effective, or approved for treating a specific patient. [employer] and its affiliates disclaim any warranty or liabilityrelating to this information or the use thereof. The use of this information is governed by the Terms of Use, available at??https://www.[employer].com/en/know/xklcrvbr-xsxfvpixmcbmc-sjlqcVeqt Updat ed 05/10/21? Patient Care team information Care Team Personnel Name: Christiano Chaudhary MD Position: S Physician - Primary Care Member Role: PCP Address: Address: [address] [place] [address]- Care Team Related Persons Name: BOZENA CARDENAS Address: [address] [place] [address] Name: KENTON CARDENAS Address: home [address] [place] [address] Name: VANNA CARDENAS Address: [address] [place] [address] Name: GRETCHEN RIVERO Address: [address] [place] [address]
--- OUTSIDE RECORDS SUMMARY | 2023-05-06 11:37 | XMS_ITS | Continuity of Care Document ---
Author Name Unknown Organization [facility] Sintia gia Address [address] [place] [address] [address] [place] [address]- Care Team Providers Care Armored Car Guard And Driver Name Role Phone Christiano Chaudhary MD Primary Care Physician [phone] [facility]counter [facility] Date(s): 10/16/19 - 11/15/19 [facility] [address] [place] [address]- [facility] Attending Physician: Admtr, Ar8 Admitting Physician: Admtr, Ar8 Referring Physician: Admtr, Ar8 Allergies, Adverse Reactions, Alerts Substance Reaction Severity [...] Given 1Result Comment: [facility]-[id number] Medications aspirin 81 mg oral tablet 1 tablet = 81 mg, By Mouth, Daily, # 30 tablet, 0 Refills, Maintenance, 07/08/18 14:13:53 EDT, Tablet Start Date: 07/08/18 Status: Ordered Lipitor 40 mg oral tablet 1 tablet = 40 mg, By Mouth, Daily, # 90 tablet, 3 Refills, Maintenance, 10/23/19 14:46:00 EDT, Tablet, [facility] #[id number], REPLACES SAM, 157.5, cm, 10/23/19 14:25:00 EDT, Height Start Date: 10/23/19 Status: Ordered Vitamin B12 1000 mcg oral tablet 1 tablet = 1,000 mcg, By Mouth, Daily, # 90 tablet, 3 Refills, Maintenance, 10/23/19 14:46:00 EDT, Tablet, [facility] #[id number], 157.5, cm, 10/23/19 14:25:00 EDT, Height Start [...] abuse(Confirmed) Active Tobacco abuse(Confirmed) Active 1CT chest 2016 performed for lung [...]
--- OUTSIDE RECORDS SUMMARY | 2023-05-06 11:37 | XMS_ITS | Continuity of Care Document ---
Author Name Unknown Organization [facility] Address [address] [place] [address]- Care Team Providers Care Warehouse Shipping Supervisor Name Role Phone Christiano Chaudhary MD Primary Care Physician [phone] [place] [facility] [place]23 - 02/24/23 [facility] [address] [place] [address]- Allergies, Adverse Reactions, Alerts No Known Allergies [...] Toxoid Vaccine (oldterm) 05/16/00 Given 1Result Comment: [id number] 2Result Comment: [facility]-[id number] Medications aspirin 81 mg oral delayed release tablet 81 mg, 1, tablet, By Mouth, Daily, # 90 tablet, Refills 0, Maintenance, 05/25/20 13:33:00 EST, Partial fill upon patient request if the prescription is for a schedule II opioid drug. Start Date: 05/25/20 Status: Ordered atorvastatin 40 mg oral tablet 1 tablet, By Mouth, Daily, # 90 tablet, 3 Refills, 02/06/23 9:35:00 EST, [facility]/pharmacy #[id number], 157.5,cm, 01/22/23 12:41:00 EST, Height Start Date: 02/06/23 Status: Ordered Vitamin B-12 1000 mcg oral tablet 1, tablet, By Mouth, Daily, # 90 tablet, Refills 3, Tot. Refills 3, 02/06/23 9:35:00 EST, Route to Pharmacy Electronically, [facility]/pharmacy #[id number], 157.5, cm, 01/22/23 12:41:00 EST, [...] Team Personnel Name: Christiano Chaudhary MD Position: [facility] Physician - Primary Care Member Role: PCP Address: Address: [address] [place] [address]- Care Team Related Persons Name: BOZENA CARDENAS Address: [address] [place] [address] Name: KENTON CARDENAS Address: [address] [place] [address] Name: VANNA CARDENAS Address: [address] [place] [address] Name: GRETCHEN RIVERO Address: home [address] [place] [address]
--- OUTSIDE RECORDS SUMMARY | 2023-05-06 11:37 | XMS_ITS | Continuity of Care Document ---
Author Name Unknown Organization [facility] [place] Panchito lt Address [address] [place] [address]- Care Team Providers Care Patient Service Representative Name Role Phone Christiano Chaudhary MD Primary Care Physician [facility] Date(s): 12/02/20 - 01/01/21 [facility] [place] Adult [address] [place] [address]- Allergies, Adverse Reactions, Alerts Substance Reaction Severity [...] Toxoid Vaccine (oldterm) 05/16/00 Given 1Result Comment: [facility]-[id number] Medications aspirin 81 mg oral delayed release tablet 81 mg, 1, tablet, By Mouth, Daily, # 90 tablet, Refills 0, Maintenance, 05/25/20 13:33:00 EST, Partial fill upon patient request if the prescription is for a schedule II opioid drug. Start Date: 05/25/20 Status: Ordered atorvastatin 40 mg oral tablet 1 tablet, By Mouth, Daily, # 90 tablet, 1 Refills, [facility] #[id number], 157.5, cm, 05/25/2112:22:00 EST, Height Start Date: 11/22/20 Status: Ordered Vitamin B12 1000 mcg oral tablet 1 tablet = 1,000 mcg, By Mouth, Daily, # 90 tablet, 3 Refills, Maintenance, 10/23/19 14:46:00 EDT, Tablet, [email or web address][id number], 157.5, cm, 10/23/19 14:25:00 EDT, Height Start [...]
--- OUTSIDE RECORDS SUMMARY | 2023-05-06 11:37 | XMS_ITS | Continuity of Care Document ---
Author Name Unknown Organization [facility] Address [address] [place] [address]- Care Team Providers Care Tandem Mill Sticker Name Role Phone Christiano Chaudhary MD Primary Care Physician [place] [facility] [place] 01/31/23 [facility] [address] [place] [address]- Allergies, Adverse Reactions, Alerts No Known Allergies [...] Toxoid Vaccine (oldterm) 05/16/00 Given 1Result Comment: [id number] 2Result Comment: [facility]-[id number] Medications aspirin 81 mg oral delayed release tablet 81 mg, 1, tablet, By Mouth, Daily, # 90 tablet, Refills 0, Maintenance, 05/25/20 13:33:00 EST, Partial fill upon patient request if the prescription is for a schedule II opioid drug. Start Date: 05/25/20 Status: Ordered atorvastatin 40 mg oral tablet 1 tablet, By Mouth, Daily, # 90 tablet, 3 Refills, 06/25/22 11:30:00 EDT, [facility] #[id number], 157.5, cm, 06/25/22 11:21:00 EDT, Height Start Date: 06/25/22 Status: Ordered Vitamin B-12 1000 mcg oral tablet 1, tablet, By Mouth, Daily, # 90 tablet, Refills 3, Tot. Refills 3, 06/25/22 11:30:00 EDT, Route toPharmacy Electronically, [facility] #[id number], 157.5, cm, 06/25/22 11:21:00 EDT, Height Start [...] Team Personnel Name: Christiano Chaudhary MD Position: [facility] Physician - Primary Care Member Role: PCP Address: Address: [address] [place] [address]- Care Team Related Persons Name: BOZENA CARDENAS Address: [address] [place] [address] Name: KENTON CARDENAS Address: [address] [address] Name: VANNA CARDENAS Address: home [address] [place] [address] Name: GRETCHEN RIVERO Address: [place] [id number]
--- OUTSIDE RECORDS SUMMARY | 2023-05-06 11:37 | XMS_ITS | Continuity of Care Document ---
Author Name Unknown Organization [facility] Address [address] [place] [address]- Care Team Providers Care Collet Maker Name Role Phone Neena MENSAH, Christiano Melvin Primary Care Physician En[facility] [place] Date(s): 07/06/19 - 08/05/19 [facility] [address] [place] [address]- [facility] Attending Physician: Teodoro Arndt Admitting Physician: Teodoro Arndt Referring Physician: Teodoro Arndt
--- OUTSIDE RECORDS SUMMARY | 2023-05-06 11:37 | XMS_ITS | Continuity of Care Document ---
Author Name Unknown Organization [facility] Address [address] [facility] [address] [place] [address]- Care Team Providers Care It Teacher Name Role Phone Neena MENSAH, Christiano Melvin Primary Care Physician Encounter [facility] Date(s): 07/28/20 - 08/27/20 [facility] [address] [facility] [address] [place], [place] [address] Attending Physician: Teodoro Arndt Admitting Physician: Admtr, Marty8 Referring Physician: Admtr, Ar8 Allergies, Adverse Reactions, [...] Vaccine (oldterm) 05/16/00 Given 1Result Comment: [facility]-[id number] Medications aspirin 81 mg oral delayed release [...] 3 Refills, Maintenance, 10/23/19 14:46:00 EDT, Tablet, [facility] #[id number], REPLACES NORISR, 157.5, cm, 10/23/19 14:25:00 EDT, Height Start Date: 10/23/19 Status: Ordered Vitamin B12 1000 mcg oral tablet 1 tablet = 1,000 mcg, By Mouth, Daily, # 90 tablet, 3 Refills, Maintenance, 10/23/19 14:46:00 EDT, Tablet, [facility] #[id number], 157.5, cm, 10/23/19 14:25:00 EDT, Height Start [...]
--- OUTSIDE RECORDS SUMMARY | 2023-05-06 11:37 | XMS_ITS | Continuity of Care Document ---
Author Name Unknown Organization [facility] Po Lau Panchito lt Address [address] [place] [address]- Care Team Providers Care Hemodialysis Rn Name Role Phone Christiano Chaudhary MD Primary Care Physician [phone] [place] [facility] [place](s[place] 10/23/19 - 10/30/19 [facility] [address] [place] [address]- [facility] Encounter Diagnosis Alcohol abuse(Discharge Diagnosis) - 10/23/19 Chronic obstructive pulmonary disease (COPD)(Discharge Diagnosis) - 10/23/19 Hypercholesterolemia(Discharge Diagnosis) - 10/23/19 Tobacco abuse(Discharge Diagnosis) - 10/23/19 Vitamin B12 deficiency(Discharge Diagnosis) - 10/23/19 Attending Physician: Christiano Chaudhary MD Allergies, Adverse [...] Toxoid Vaccine (oldterm) 05/16/00 Given 1Result Comment: [facility]-[id number] Medications aspirin 81 mg oral tablet 1 tablet = 81 mg, By Mouth, Daily, # 30 tablet, 0 Refills, Maintenance, 07/08/18 14:13:53 EDT, Tablet Start Date: 07/08/18 Status: Ordered Lipitor 40 mg oral tablet 1 tablet = 40 mg, By Mouth, Daily, # 90 tablet, 3 Refills, Maintenance, 10/23/19 14:46:00 EDT, Tablet, [facility] #[id number], REPLACES NORISR, 157.5, cm, 10/23/19 14:25:00 EDT, Height Start Date: 10/23/19 Status: Ordered Vitamin B12 1000 mcg oral tablet 1 tablet = 1,000 mcg, By Mouth, Daily, # 90 tablet, 3 Refills, Maintenance, 10/23/19 14:46:00 EDT, Tablet, [facility] #[id number], 157.5, cm, 10/23/19 14:25:00 EDT, Height Start [...] Effective Dates Health Status Clinical Service Informant Alcohol abuse Discharge Diagnosis 10/23/19 Chronic obstructive pulmonary disease (COPD) Discharge Diagnosis 10/23/19 Hypercholesterolemia Discharge Diagnosis 10/23/19 Tobacco abuse Discharge Diagnosis 10/23/19 Vitamin B12 deficiency Discharge Diagnosis 10/23/19 Vital Signs Most recent to oldest [Reference Range]: 1 Height 157.5 cm (10/23/19 2:25 PM) Weight 53.6 kg (10/23/19 2:25 PM) Oxygen Saturation [94-100 %] 98 % (10/23/19 2:25 PM) Pulse Rate [55-90 bpm] 80 bpm (8/7/20 2:25 PM) Body Mass Index [18.5-24.99] 21.61 (10/23/19 2:25 PM) Blood Pressure [90-138/55-84 mm Hg] 110/ 62mm Hg (10/23/19 2:25 PM) Mode of Delivery (Oxygen) Room air (10/23/19 2:25 PM) Blood pressure sites Arm, left (10/23/19 2:25 PM) Weight Obtained Via Standing scale (10/23/19 2:25 PM) Social History Social History Type Response 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
--- OUTSIDE RECORDS SUMMARY | 2023-05-06 11:37 | XMS_ITS | Continuity of Care Document ---
Author Name Unknown Organization [facility] Po Lau Panchito lt Address [address] [place] [address]- Care Team Providers Care Professor Of Theology Name Role Phone Christiano Chaudhary MD Primary Care Physician [place] [facility] [place]/25/20 - 06/01/20 [facility] [address] [place] [address]- Encounter Diagnosis Chronic obstructive pulmonary disease (COPD)(Discharge Diagnosis) - 05/25/20 Alcohol abuse(Discharge Diagnosis) - 05/25/20 Coronary artery disease(Discharge Diagnosis) - 05/25/20 Tobacco abuse(Discharge Diagnosis) - 05/25/20 Vitamin B12 deficiency(Discharge Diagnosis) - 05/25/20 Attending Physician: Christiano Chaudhary MD Allergies, Adverse [...] Toxoid Vaccine (oldterm) 05/16/00 Given 1Result Comment: [facility]-[id number] Medications aspirin 81 mg oral delayed release [...] 3 Refills, Maintenance, 10/23/19 14:46:00 EDT, Tablet, [facility] #[id number], REPLACES ZOCOR, 157.5, cm, 10/23/19 14:25:00 EDT, Height Start Date: 10/23/19 Status: Ordered Vitamin B12 1000 mcg oral tablet 1 tablet = 1,000 mcg, By Mouth, Daily, # 90 tablet, 3 Refills, Maintenance, 10/23/19 14:46:00 EDT, Tablet, [facility] #[id number], 157.5, cm, 10/23/19 14:25:00 EDT, Height Start [...] Chronic obstructive pulmonary disease (COPD) Discharge Diagnosis 05/25/20 Alcohol abuse Discharge Diagnosis 05/25/20 Coronary artery disease Discharge Diagnosis 05/25/20 Tobacco abuse Discharge Diagnosis 05/25/20 Vitamin B12 deficiency Discharge Diagnosis 05/25/20 Vital Signs Most recent to oldest [Reference Range]: 1 Height 157.5 cm (05/25/20 1:22 PM) Weight 50.2 kg (05/25/20 1:22 PM) Oxygen Saturation [94-100 %] 97 % (05/25/20 1:22 PM) Pulse Rate [55-90 bpm] 102 bpm *H* (05/25/20 1: PM) Body Mass Index [18.5-24.99] 20.24 (05/25/20 1:22 PM) Blood Pressure [90-138/55-84 mm Hg] 110/ 72mm Hg (05/25/20 1: PM) Mode of Delivery (Oxygen) Room air (05/25/20 1: PM) Blood pressure sites Arm, left (05/25/20 1: PM) Weight Obtained Via Standing scale (05/25/20 1:22 PM) Social History Social History Type Response 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
--- OUTSIDE RECORDS SUMMARY | 2023-05-06 11:37 | XMS_ITS | Continuity of Care Document ---
Author Name Unknown Organization [facility] Address [address] [place] [address]- Care Team Providers Care Parking Assistant Name Role Phone Neena MENSAH, Christiano Melvin Primary Care Physician Encounter [facility] Date(s): 11/15/21 - 05/17/[address] [address] Attending Physician: Clifton Joy MD Admitting Physician: Clifton Joy MD Allergies, Adverse Reactions, Alerts No Known [...] Toxoid Vaccine (oldterm) 05/16/00 Given 1Result Comment: [facility]-[id number] Medications aspirin 81 mg oral delayed release tablet 81 mg, 1, tablet, By Mouth, Daily, # 90 tablet, Refills 0, Maintenance, 05/25/20 13:33:00 EST, Partial fill upon patient request if the prescription is for a schedule II opioid drug. Start Date: 05/25/20 Status: Ordered atorvastatin 40 mg oral tablet 1 tablet, By Mouth, Daily, # 90 tablet, 3 Refills, 06/01/21 10:22:00 EDT, [facility] #[id number], 157.5, cm, 06/01/21 10:12:00 EDT, Height Start Date: 06/01/21 Status: Ordered Vitamin B-12 1000 mcg oral tablet 1, tablet, By Mouth, Daily, # 90 tablet, Refills 3, Tot. Refills 3, 06/01/21 10:22:00 EDT, Route toPharmacy Electronically, [facility] #[id number], 157.5, cm, 06/01/21 10:12:00 EDT, Height Start [...] Team Personnel Name: Christiano Chaudhary MD Position: [facility] Primary Care Physician Member Role: PCP Address: Address: [address] [place] [address]- Care Team Related Persons Name: BOZENA CARDENAS Address: [address] [place] [address] Name: KENTON CARDENAS Address: home [address] [place] [address] Name: VANNA CARDENAS Address: [address] [address] Name: GRETCHEN RIVERO Address: [place] [id number]
--- OUTSIDE RECORDS SUMMARY | 2023-05-06 11:37 | XMS_ITS | Continuity of Care Document ---
Author Name Unknown Organization [facility] Panchito lt Address [address] [place] [address]- Care Team Providers Care Entertainment Dancer Name Role Phone Christiano Chaudhary MD Primary Care Physician [facility] Date(s): 01/11/23 - 01/18/23 [facility] [address] [place] [address]- Attending Physician: Christiano Chaudhary MD Allergies, Adverse [...] Toxoid Vaccine (oldterm) 05/16/00 Given 1Result Comment: 2Result Comment: [facility]-[id number] Medications aspirin 81 mg oral delayed release tablet 81 mg, 1, tablet, By Mouth, Daily, # 90 tablet, Refills 0, Maintenance, 05/25/20 13:33:00 EST, Partial fill upon patient request if the prescription is for a schedule II opioid drug. Start Date: 05/25/20 Status: Ordered atorvastatin 40 mg oral tablet 1 tablet, By Mouth, Daily, # 90 tablet, 3 Refills, 06/25/22 11:30:00 EDT, [facility] #[id number], 157.5, cm, 06/25/22 11:21:00 EDT, Height Start Date: 06/25/22 Status: Ordered Golytely - oral powder for reconstitution 240 mL, By Mouth, Every 15 minutes, Split prep method. 1/2 gallon 5pm evening before colonoscopy then 2nd half of gallon 6 hours prior to colonoscopy, # 1 each, 0 Refills, Maintenance, 01/01/23 15:38:00 EDT, REC Powder, [facility] #[id number],... Start Date: 01/01/23 Status: Ordered Vitamin B-12 1000 mcg oral tablet 1, tablet, By Mouth, Daily, # 90 tablet, Refills 3, Tot. Refills 3, 06/25/22 11:30:00 EDT, Route toPharmacy Electronically, [facility] #[id number], 157.5, cm, 06/25/22 11:21:00 EDT, Height Start [...] 3-5 years 7colo 2008 polyp, rpt 2011 Vital Signs Most recent to oldest [Reference Range]: 1 Height 157.5 cm (01/11/23 7:41 AM) Weight 48.1 kg (01/11/23 7:41 AM) Oxygen Saturation [94-100 %] 98 % (01/11/23 7:41 AM) Pulse Rate [55-90 bpm] 72 bpm (01/11/23 7:41 AM) Body Mass Index [18.5-24.99 kg/m2] 19.39 kg/m2 (01/11/23 7:41 AM) Blood Pressure [90-138/55-84 mm Hg] 128/ 68mm Hg (01/11/23 7:41 AM) Mode of Delivery (Oxygen) Room air (01/11/23 7:41 AM) Blood pressure sites Arm, left (01/11/23 7:41 AM) Weight Obtained Via Standing scale (01/11/23 7:41 AM) Social History Social History Type Response Smoking Status Current every day sm oker; Other: 1 pack of cigarettes daily.; entered on: 11/08/16 Sex Note * Esme Cid: PERFORM, SIGN, VERIFY Event Display: Patient Education/Instruction Authored Date: [id number] [facility] *BMP So Sid Fernández Clinical Summary Name GALI RAMOS Age 62 Years 1960 PCP Neena MENSAH, Christiano Melvin PCP Visit Date 01/11/2023 07:39:00 Additional Instructions: Scheduled Appointments?? Future Appointments ?[facility] ?[address]??[place],??[place],??[address] ?Phone:??[phone]?Fax:??-- ?Appt. Date:??01/22/2023?1:30 PM ?Scheduled Provider:??[id number] Follow-Up Instructions ?? With: Address: When: Neena MENSAH, Christiano Melvin In 6 months Diagnosis Medications: Please continue your medications until treatment is completed or stopped by your provider. Discuss any questions related to medications with your provider. Medications to Continue with No Changes These medications were not printed or sent to your pharmacy Aspirin (aspirin 81 mg oral delayed release tablet) 1 tab(s) Oral Daily. Next Dose: Atorvastatin (atorvastatin 40 mg oral tablet) 1 tab(s) Oral Daily. Refills: 3. Next Dose: Cyanocobalamin (Vitamin B-12 1000 mcg oral tablet) 1 tab(s) Oral Daily. Refills: 3. Next Dose: PEG Electrolyte Solution (Golytely - oral powder for reconstitution) 240 Milliliter Oral every 15 minutes. Split prep method. 1/2 gallon 5pm evening before colonoscopy then 2nd half of gallon 6 hoursprior to colonoscopy. Refills: 0. Next Dose: Allergy Info:?? NKA Medications Given This Visit Medication Dose Route influenza virus vaccine, inactivated (influenza virus, inactivated vacc) 0.5 mL Intramuscular Future Orders ?Direct LDL? Order Date:01/11/23?- Complete on or after?01/11/23 ?Thyroid Panel? Order Date:01/11/23?- Complete on or after?01/11/23 ?PSA? Order Date:01/11/23?- Complete on or after?01/11/23 ?CBC? Order Date:01/11/23?- Complete on or after?01/11/23 ?Vitamin B12 Level? Order Date:01/11/23?- Complete on or after?01/11/23 ?Comprehensive Metabolic Panel? Order Date:01/11/23?- Complete on or after?01/11/23 Vital Signs Height 157.5 cm Weight 48.1 kg BMI 19.39 kg/m2 Blood Pressure 128 mm Hg/68 mm Hg Temperature Pulse Rate 72 bpm Respiratory Rate 02 Sat Mode of Delivery 98 %/Room air You can now view a summary of your hospital visit from the comfort of your home through a free online portal called [employer]. [employer] is a website that allows you to securely view your medical information including discharge summary, medications and follow-up visits. ??You can alsosend a secure electronic message to your doctor???s office to request appointments, renew medications or just ask a question. You can enroll at [email or web address] or register during your next office [...] primary care provider, you may find a [facility] provider by calling [facility] Link at [phone]. [facility], in keeping with [facility] guidance, no longer requires face masks for staff, patientsor visitors in most situations. Similar to time spent indoors at other locations, there is the chance that you were exposed to respiratory viruses during your time with us (such as flu or COVID-19).? If you develop symptoms concerning for a viral respiratory infection, please seek testing (and treatment if indicated) from your medical provider or home test kit. For information about the plan of care including goals and instructions for your diagnosis, please see the patient education orders section of this document. Patient Education Materials?? The content of this educational material or handout may have been modified, supplemented, or adapted from its original content and format to support your individualized medical care. Additional Provider Instructions: Thank you for coming in for your physical. I would like you to get your RSV vaccine/COVID-19 booster/shingles vaccine series at your local pharmacy. Please proceed with your colonoscopy in January as scheduled. Patient Care team information Care Team Personnel Name: Neena MENSAH, Christiano Melvin Position: S Physician - Primary Care Member Role: PCP Address: Address: [address] [place] [address]- [place] Care Team Related Persons Name: BOZENA CARDENAS Address: home [address] [place] [address] Name: KENTON CARDENAS Address: [address] [place] [address] Name: VANNA CARDENAS Address: [address] [place] [address] [place] Name: GRETCHEN RIVERO Address: home [address] [place] [address]
--- OUTSIDE RECORDS SUMMARY | 2023-05-06 11:37 | XMS_ITS | Continuity of Care Document ---
Author Name Unknown Organization [facility] Sid Panchito lt Address [address] [place] [address]- Care Team Providers Care Group Work Program Director Name Role Phone Christiano Chaudhary MD Primary Care Physician [place] [facility] [place] 11/23/19 [facility] [address] [place] [address]- [facility] Allergies, Adverse Reactions, Alerts Substance Reaction Severity [...] Toxoid Vaccine (oldterm) 05/16/00 Given 1Result Comment: [facility]-[id number] Medications aspirin 81 mg oral tablet 1 tablet = 81 mg, By Mouth, Daily, # 30 tablet, 0 Refills, Maintenance, 07/08/18 14:13:53 EDT, Tablet Start Date: 07/08/18 Status: Ordered Lipitor 40 mg oral tablet 1 tablet = 40 mg, By Mouth, Daily, # 90 tablet, 3 Refills, Maintenance, 10/23/19 14:46:00 EDT, Tablet, [facility] #[id number], REPLACES ZOCOR, 157.5, cm, 10/23/19 14:25:00 EDT, Height Start Date: 10/23/19 Status: Ordered Vitamin B12 1000 mcg oral tablet 1 tablet = 1,000 mcg, By Mouth, Daily, # 90 tablet, 3 Refills, Maintenance, 10/23/19 14:46:00 EDT, Tablet, [facility] #[id number], 157.5, cm, 10/23/19 14:25:00 EDT, Height Start [...]
--- OUTSIDE RECORDS SUMMARY | 2023-05-06 11:37 | XMS_ITS | Continuity of Care Document ---
Author Name Unknown Organization [facility] lt Address [address] [place] [address]- Care Team Providers Care Traveling Operator Name Role Phone Christiano Chaudhary MD Primary Care Physician [phone] [facility]counter [facility] Date(s): 06/26/22 - 07/26/22 [facility] [address] [place] [address]- Allergies, Adverse Reactions, Alerts No Known Allergies [...] Toxoid Vaccine (oldterm) 05/16/00 Given 1Result Comment: [id number] 2Result Comment: [id number] Medications aspirin 81 mg oral delayed release tablet 81 mg, 1, tablet, By Mouth, Daily, # 90 tablet, Refills 0, Maintenance, 05/25/20 13:33:00 EST, Partial fill upon patient request if the prescription is for a schedule II opioid drug. Start Date: 05/25/20 Status: Ordered atorvastatin 40 mg oral tablet 1 tablet, By Mouth, Daily, # 90 tablet, 3 Refills, 06/25/22 11:30:00 EDT, [facility] #[id number], 157.5, cm, 06/25/22 11:21:00 EDT, Height Start Date: 06/25/22 Status: Ordered Vitamin B-12 1000 mcg oral tablet 1, tablet, By Mouth, Daily, # 90 tablet, Refills 3, Tot. Refills 3, 06/25/22 11:30:00 EDT, Route toPharmacy Electronically, [facility] #[id number], 157.5, cm, 06/25/22 11:21:00 EDT, Height Start [...] Care Physician Member Role: PCP Address: Address: [address] [place] [address]- Care Team Related Persons Name: BOZENA CARDENAS Address: home [address] [place] [id number] Name: KENTON CARDENAS Address: home [address] [place] [address] Name: VANNA CARDENAS Address: home [address] [place] [address] Name: GRETCHEN RIVERO Address: home [address] [place] [address]
--- OUTSIDE RECORDS SUMMARY | 2023-05-06 11:37 | XMS_ITS | Continuity of Care Document ---
Author Name Unknown Organization [facility] lt Address [address] [place] [address]- Care Team Providers Care Emergency Communications Officer Name Role Phone Christiano Chaudhary MD Primary Care Physician [facility] Date(s): 03/13/23 - 04/12/23 [facility] Adult [address] [place] [address]- Allergies, Adverse Reactions, Alerts No Known Allergies [...] Toxoid Vaccine (oldterm) 05/16/00 Given 1Result Comment: [id number] 2Result Comment: [facility]-[id number] Medications aspirin 81 mg oral delayed release tablet 81 mg, 1, tablet, By Mouth, Daily, # 90 tablet, Refills 0, Maintenance, 05/25/20 13:33:00 EST, Partial fill upon patient request if the prescription is for a schedule II opioid drug. Start Date: 05/25/20 Status: Ordered atorvastatin 40 mg oral tablet 1 tablet, By Mouth, Daily, # 90 tablet, 3 Refills, 02/06/23 9:35:00 EST, [facility]acy #[id number], 157.5,cm, 01/22/23 12:41:00 EST, Height Start Date: 02/06/23 Status: Ordered Vitamin B-12 1000 mcg oral tablet 1, tablet, By Mouth, Daily, # 90 tablet, Refills 3, Tot. Refills 3, 02/06/23 9:35:00 EST, Route to Pharmacy Electronically, [facility]/pharmacy #[id number], 157.5, cm, 01/22/23 12:41:00 EST, Height [...] Primary Care Member Role: PCP Address: Address: [address] [place] [address]- Care Team Related Persons Name: BOZENA CARDENAS Address: home [address] [place] [address] Name: KENTON CARDENAS Address: home [address] [place] [address] Name: VANNA CARDENAS Address: home [address] [place] [address] Name: GRETCHEN RIVERO Address: home [address] [place] [address]
--- OUTSIDE RECORDS SUMMARY | 2023-05-06 11:37 | XMS_ITS | Continuity of Care Document ---
Author Name Unknown Organization [facility] lt Address [address] [place] [address]- Care Team Providers Care Senior Technical Manager Name Role Phone Christiano Chaudhary MD Primary Care Physician [phone] Encounter [facility] [place] Date(s): 12/01/20 - 12/08/20 [facility] Adult [address] [place] [address]- Attending Physician: Christiano Chaudhary MD Allergies, Adverse [...] Vaccine (oldterm) 05/16/00 Given 1Result Comment: [facility]-[id number] Medications aspirin 81 mg oral delayed release tablet 81 mg, 1, tablet, By Mouth, Daily, # 90 tablet, Refills 0, Maintenance, 05/25/20 13:33:00 EST, Partial fill upon patient request if the prescription is for a schedule II opioid drug. Start Date: 05/25/20 Status: Ordered atorvastatin 40 mg oral tablet 1 tablet, By Mouth, Daily, # 90 tablet, 1 Refills, [facility] #[id number], 157.5, cm, 05/25/2112:22:00 EST, Height Start Date: 11/22/20 Status: Ordered Vitamin B12 1000 mcg oral tablet 1 tablet = 1,000 mcg, By Mouth, Daily, # 90 tablet, 3 Refills, Maintenance, 10/23/19 14:46:00 EDT, [id number], 157.5, cm, 10/23/19 14:25:00 EDT, Height Start [...] oldest [Reference Range]: 1 Height 157.5 cm (12/01/20 11:11 AM) Weight 50.4 kg (12/01/20 11:11 AM) Pulse Rate [55-90 bpm] 84 bpm (12/01/20 11:11 AM) Body Mass Index [18.5-24.99] 20.32 (12/01/20 11:11 AM) Blood Pressure [90-138/55-84 mm Hg] 122/ 82mm Hg (12/01/20 11:11 AM) Mode of Delivery (Oxygen) Room air (12/01/20 11:11 AM) Blood pressure sites Arm, left (12/01/20 11:11 AM) Weight Obtained Via Standing scale (12/01/20 11:11 AM) Social History Social History Type Response Smoking Status Current every day sm matter; Other: 1 pack of cigarettes daily.; entered on: 11/08/16 Sex
--- OUTSIDE RECORDS SUMMARY | 2023-05-06 11:37 | XMS_ITS | Continuity of Care Document ---
Author Name Unknown Organization [facility] [place] lt Address [address] [place] [address]- Care Team Providers Care Plumbing And Heating Contractor Name Role Phone Christiano Chaudhary MD Primary Care Physician [facility]counter [facility] Date(s): 06/02/21 - 07/02/21 [facility] [place] Adult [address] [place] [address]- Allergies, Adverse Reactions, Alerts No Known Allergies [...] Toxoid Vaccine (oldterm) 05/16/00 Given 1Result Comment: [id number] Medications aspirin 81 mg oral delayed release tablet 81 mg, 1, tablet, By Mouth, Daily, # 90 tablet, Refills 0, Maintenance, 05/25/20 13:33:00 EST, Partial fill upon patient request if the prescription is for a schedule II opioid drug. Start Date: 05/25/20 Status: Ordered atorvastatin 40 mg oral tablet 1 tablet, By Mouth, Daily, # 90 tablet, 3 Refills, 06/01/21 10:22:00 EDT, [facility] #[id number], 157.5, cm, 06/01/21 10:12:00 EDT, Height Start Date: 06/01/21 Status: Ordered Vitamin B-12 1000 mcg oral tablet 1, tablet, By Mouth, Daily, # 90 tablet, Refills 3, Tot. Refills 3, 06/01/21 10:22:00 EDT, Route toPharmacy Electronically, [facility] #[id number], 157.5, cm, 06/01/21 10:12:00 EDT, Height Start [...]
--- OUTSIDE RECORDS SUMMARY | 2023-05-06 11:37 | XMS_ITS | Continuity of Care Document ---
Author Name Unknown Organization [facility] [place] Address [address] [place] [address]- Care Team Providers Care Legal Financial Specialist Name Role Phone Christiano Chaudhary MD Primary Care Physician Encounter [facility] Date(s): 11/15/21 - 12/15/21 [facility] [address] [address] Attending Physician: Teodoro Arndt Admitting Physician: Admtr, Teodoro Referring Physician: Admtr, Ar8 Allergies, Adverse Reactions, [...] Toxoid Vaccine (oldterm) 05/16/00 Given 1Result Comment: [facility]-[id number] Medications aspirin 81 mg oral delayed release tablet 81 mg, 1, tablet, By Mouth, Daily, # 90 tablet, Refills 0, Maintenance, 05/25/20 13:33:00 EST, Partial fill upon patient request if the prescription is for a schedule II opioid drug. Start Date: 05/25/20 Status: Ordered atorvastatin 40 mg oral tablet 1 tablet, By Mouth, Daily, # 90 tablet, 3 Refills, 06/01/21 10:22:00 EDT, [facility] #[id number], 157.5, cm, 06/01/21 10:12:00 EDT, Height Start Date: 06/01/21 Status: Ordered Golytely - oral powder for reconstitution 240 mL, By Mouth, Every 15 minutes, # 480 mL, 0 Refills, Maintenance, 11/15/21 12:56:00 EDT, REC Powder, [facility] #[id number], Partial fill upon patient request if the prescription is for a schedule II opioid drug., 240 mL By Mouth Every 15 min... Start Date: 11/15/21 Status: Ordered Vitamin B-12 1000 mcg oral tablet 1, tablet, By Mouth, Daily, # 90 tablet, Refills 3, Tot. Refills 3, 06/01/21 10:22:00 EDT, Route toPharmacy Electronically, [facility] #[id number], 157.5, cm, 06/01/21 10:12:00 EDT, Height Start [...] Name: Neena MENSAH, Christiano Melvin Address: Address: [address] [place] [address]
--- OUTSIDE RECORDS SUMMARY | 2023-05-06 11:37 | XMS_ITS | Continuity of Care Document ---
Author Name Unknown Organization [facility] gia Address [address] [place] [address] [address] [place] [address]- Care Team Providers Care Paralegals Name Role Phone Christiano Chaudhary MD Primary Care Physician Encounter [facility] [place] [place] Date(s): 04/03/19 - 04/10/19 [facility] [address] [place] [address]- [facility] Attending Physician: Nickolas Lala MD Referring Physician: [...] 1 Refills, Maintenance, 04/06/19 10:56:00 EST, Tablet, [facility] #[id number], REPLACES ZOCOR, 157.5, cm, 04/03/19 11:11:00 EST, [...] oldest [Reference Range]: 1 Height 157.5 cm (04/03/19 11:11 AM) Weight 55 kg (04/03/19 11:11 AM) Body Mass Index [18.5-24.99] 22.17 (04/03/19 11:11 AM) Social History Social History Type Response 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
--- OUTSIDE RECORDS SUMMARY | 2023-05-06 11:37 | XMS_ITS | Continuity of Care Document ---
Author Name Unknown Organization [facility] gia Address [address] [place] [address] [address] [place] [address]- Care Team Providers Care Ladle Liner Helper Name Role Phone Christiano Chaudhary MD Primary Care Physician [facility] Date(s): 07/03/19 - 07/13/19 [facility] [address] [place] [address]- [facility] Attending Physician: Admtr, Ar8 Admitting Physician: [...] 1 Refills, Maintenance, 04/06/19 10:56:00 EST, Tablet, [facility] #[id number], REPLACES [facility]OC[facility], 157.5, cm, 04/03/19 11:11:00 EST, [...]
--- OUTSIDE RECORDS SUMMARY | 2023-05-06 11:37 | XMS_ITS | Continuity of Care Document ---
Author Name Unknown Organization [facility] Address [address] [place] [address]- Care Team Providers Care Medical Chemist Name Role Phone Christiano Chaudhary MD Primary Care Physician [facility]counter [facility] Date(s): 12/20/21 - 01/19/22 [facility] Adult [address] [place] [address]- Allergies, Adverse Reactions, Alerts No Known Allergies [...] Toxoid Vaccine (oldterm) 05/16/00 Given 1Result Comment: [facility]-[id number] Medications aspirin 81 mg oral delayed release tablet 81 mg, 1, tablet, By Mouth, Daily, # 90 tablet, Refills 0, Maintenance, 05/25/20 13:33:00 EST, Partial fill upon patient request if the prescription is for a schedule II opioid drug. Start Date: 05/25/20 Status: Ordered atorvastatin 40 mg oral tablet 1 tablet, By Mouth, Daily, # 90 tablet, 3 Refills, 06/01/21 10:22:00 EDT, [facility] #[id number], 157.5, cm, 06/01/21 10:12:00 EDT, Height Start Date: 06/01/21 Status: Ordered Golytely - oral powder for reconstitution 240 mL, By Mouth, Every 15 minutes, # 480 mL, 0 Refills, Maintenance, 11/15/21 12:56:00 EDT, REC Powder, [facility] #[id number], Partial fill upon patient request if the prescription is for a schedule II opioid drug., 240 mL By Mouth Every 15 min... Start Date: 11/15/21 Status: Ordered Vitamin B-12 1000 mcg oral tablet 1, tablet, By Mouth, Daily, # 90 tablet, Refills 3, Tot. Refills 3, 06/01/21 10:22:00 EDT, Route toPharmacy Electronically, [facility] #[id number], 157.5, cm, 06/01/21 10:12:00 EDT, Height Start [...] Personnel Name: Christiano Chaudhary MD Address: Address: [address] [place] [address]-
--- OUTSIDE RECORDS SUMMARY | 2023-05-06 11:38 | XMS_ITS | Continuity of Care Document ---
Author Name Unknown Organization [facility] gia Address [address] [place] [address] [address] [place] [address]- Care Team Providers Care Pasteuriser Operator Name Role Phone Christiano Chaudhary MD Primary Care Physician En[place] [facility] [place] Date(s): 04/04/19 - 08/02/19 [facility] [address] [place] [address]- [facility] Attending Physician: Nickolas Lala MD [...] 1 Refills, Maintenance, 04/06/19 10:56:00 EST, Tablet, [facility] #[id number], REPLACES [facility], 157.5, cm, 04/03/19 11:11:00 EST, [...]
--- OUTSIDE RECORDS SUMMARY | 2023-05-06 11:38 | XMS_ITS | Continuity of Care Document ---
Author Name Unknown Organization [facility] Address [address] [address]- Care Team Providers Care Quality Assurance Intern Name Role Phone Neena MENSAH, Christiano Melvin Primary Care Physician [facility] Date(s): 01/26/21 - 02/25/21 [facility] [address] [facility] [address] [place], [place] [address] Attending Physician: Teodoro Arndt Admitting Physician: AdmtrTeodoro [...] Toxoid Vaccine (oldterm) 05/16/00 Given 1Result Comment: [facility]-[id number] Medications aspirin 81 mg oral delayed release tablet 81 mg, 1, tablet, By Mouth, Daily, # 90 tablet, Refills 0, Maintenance, 05/25/20 13:33:00 EST, Partial fill upon patient request if the prescription is for a schedule II opioid drug. Start Date: 05/25/20 Status: Ordered atorvastatin 40 mg oral tablet 1 tablet, By Mouth, Daily, # 90 tablet, 1 Refills, [facility] #[id number], 157.5, cm, 05/25/2112:22:00 EST, Height Start Date: 11/22/20 Status: Ordered Vitamin B-12 1000 mcg oral tablet 1, tablet, By Mouth, Daily, # 90 tablet, Refills 0, Route to Pharmacy Electronically, [facility] #[id number], 157.5, cm, 12/01/20 11:11:00 EDT, Height Start Date: 01/10/21 Status: Ordered Problem List Condition Effective Dates [...]
--- NOTE | 2023-05-06 13:12 | AM.OFFWIN_ITS ---
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 He states that last week he had cough and congestion which got better and then it returned worse. Now has cough fever shortness of breath. [facility] Medical History (Updated 05/06/23 @ 13:37 by Donita Lindsey DO) Cough Social History Patient Tobacco Use Status: Never used Tobacco Physical Exam Vital Signs: Last Vital Signs Temp 100.3 F 05/06/23 13:22 Pulse 99 05/06/23 13:22 BP 140/70 H 05/06/23 13:22 Pulse Ox 90 L 05/06/23 13:22 Oxygen Delivery Method Room Air 05/06/23 13:22 BMI result Body Mass Index 17.9 Const Other: The patient is tachypneic but only mildly ill in appearance. We do not have an old O2 sat for comparison but patient is a long-time smoker and I suspect his O2 sat hovers around 94-95% at baseline. General: healthy appearing and no acute distress HEENT Mouth: Normal oral and palatal mucosa present Resp Effort & Inspection: able to speak in complete sentences Auscultation: clear to auscultation bilaterally Cardio Rate: regular rate Rhythm: regular rhythm Assessment & Plan Assessment & Plan (1) Cough: Code(s): R05.9 - Cough, unspecified Plan Patient had a chest x-ray which shows a retrocardiac infiltrate per my inte rpretation final report by radiology pending. Will place patient on course of antibiotics as well as steroids and albuterol. Patient has not been formally diagnosed with COPD and does not have any inhalers at home. His chest x-ray does show a barrel chest appearance suggestive of COPD. Will recommend follow- up to PCP or return here. Additionally if his symptoms worsened by tomorrow he was instructed to go to the local emergency department Orders: Orders XR chest 2V Today R05.9 - Cough, unspecified, R07.81 - Pleurodynia Medications: New azithromycin For 250 mg dose pack: take 500 mg today (day 1), then 250 mg for 4 days (days 2-5) PO 6 tabs 0RF albuterol sulfate 90 mcg/actuation 2 inhalations inhalation QID PRN 6.7 grams 0RF shortness of breath or wheezing prednisone Take 4 tabs p.o. daily x4 days 10 mg PO DAILY 16 tabs 0RF Coding Level of Care Code Est Pt Level 4 (10043) Diagnoses Cough R05.9
[2023-05-06 13:22] VITALS: BP 140/70; PULSE 99; TEMP 37.9; O2SAT 90; BMI 17.9
== END 2023-05-06 15:20 | disposition home or self-care (01) ==
PROVIDERS: PCP Internal Medicine; Visit Provider Emergency Medicine
DX: R05.9 Cough, unspecified (principal)
CPT/HCPCS: 99214

== ENCOUNTER 2023-05-06 13:38 | Outpatient (REF) | payer OTHER, SELFPAY ==
--- NOTE | ~2023-05-06 | XR_ITS ---
EXAMINATION: XR CHEST CLINICAL INFORMATION: Pleurodynia. COMPARISON: None available. TECHNIQUE: 2 views of the chest were obtained. FINDINGS: The lungs are hyperinflated with bilateral increased markings without interstitial edema or pneumonitis. No pleural effusion. The heart size and progress clarities normal. No gross bony abnormality seen. XR/XR chest 2V IMPRESSION: Hyperinflated lungs with bilateral increased interstitial markings likely airway disease. No acute consolidation or pleural effusion.
== END 2023-05-06 13:39 | disposition home or self-care (01) ==
LOC: HO.HMGCX 13:38
PROVIDERS: PCP Internal Medicine; Visit Provider Emergency Medicine
DX: R07.81 Pleurodynia (principal); R05.9 Cough, unspecified
CPT/HCPCS: 71046